=== PATIENT | male | born 1960 | race Caucasian/White ===

== ENCOUNTER 2023-01-03 13:55 | Emergency (ER) | payer OTHER, SELFPAY ==
[2023-01-03 14:01] VITALS: BP 154/95; PULSE 75; RESP 16; TEMP 36.7; O2SAT 94; BMI 28.7
--- NOTE | 2023-01-03 14:10 | CT_ITS ---
WS: [id number] CT HEAD NONCONTRAST HISTORY: confusion TECHNIQUE: Contiguous axial imaging performed through the brain in 2.5 mm imaging. Bone and soft tiss ue windows. Sagittal and coronal reformats reviewed. All CT scans at [facility] use at least one of these dose optimization techniques: automated exposure control; mA and/or kV adjustment per pa tient size (includes targeted exams where dose is matched to clinical indication); or iterative recon struction. DLP: 1063.08 mGy.cm COMPARISON: None available. No acute intracranial hemorrhage, midline shift or mass effect. Mild bifrontal lobe atrophy. No prior infarct. Ventricles: Normal size with no hydrocephalus. No inferior displacement of cerebellar tonsils. Paranasal sinuses: As visualized are clear. Mastoid air cells: Well pneumatized. Calvarium and scalp: Skull is intact with no soft tissue edema or swelling. IMPRESSION: 1. No acute intracranial hemorrhage or edema. 2. Mild bifrontal lobe atrophy.
--- NOTE | 2023-01-03 14:10 | XR_ITS ---
WS: [id number] Portable AP upright chest, 01/03/2023 Clinical Data: confusion Comparison: Portable chest, 04/26/2016 Findings: No nodules, masses or effusions are seen. The heart is normal. The pulmonary vascularity is not increased. No pneumonia or pneumothorax is seen. The aortic arch and descending thoracic aorta s how tortuosity. Impression: Negative chest.
--- NOTE | 2023-01-03 14:11 | ECG_ITS ---
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 Measurements Intervals [place] Rate: 74 P: 9 AK: 132 QRS: -22 QRSD: 98 T: -21 QT: 389 QTc: 432 Interpretive Statements SINUS RHYTHM BORDERLINE LEFT AXIS DEVIATION [QRS AXIS < -20] MODERATE VOLTAGE CRITERIA FOR LVH, CONSIDER NORMAL VARIANT [MEETS CRITERIA IN ONE OF: R(aVL), S(V1), R(V5), R(V5/V6)+S(V1)] MINIMAL ST DEPRESSION [0.025+ mV ST DEPRESSION] Compared to ECG 04/26/2016 10:21:59 No significant changes Electronically Signed On 01-03-2023 17:19:51 MECHANICAL RELIABILITY ENGINEER by Reynaldo Salmeron M.D. [id number]
--- NOTE | 2023-01-03 14:13 | ED_ITS ---
HPI - Anxiety General: Chief Complaint: Anxiety Stated Complaint: Confusion Time Seen by Provider: 01/03/23 13:57 Source: patient and EMS Mode of arrival: EMS Limitations: no limitations History of Present Illness: 62-year-old male who states that he is under a lot of stress at home. States she has a special needs daughter and his [id number] and of had bad health he states that today he is feeling extremely anxious started having some slight confusion. Is very difficult to get a history from the patient I do not appreciate any definite confusion here he is answering most my questions appropriately. He does know where he is when I did ask him the year he states he never knows the year he does not pay attention to your I asked him who the president was and he said that he does not know who the president was for years because he is too busy to pay attention to that. He has had a very mild headache denies any fevers. Associated symptoms: Reports confusion; Deny chest pain, chills, fever(s), headache(s), nausea or vomiting Review of Systems Const: Denies: fever(s) or chills Eyes: Denies: blurry vision or eye discomfort ENMT: Denies: throat pain or dental pain Card: Denies: chest pain Resp: Denies: dyspnea GI: Denies: abdominal pain, nausea, vomiting or diarrhea : Denies: dysuria Musc: Denies: neck pain or back pain Skin/Breast: Denies: rash Neuro: Reports: confusion; Denies: headache(s) or difficulty walking Physical Exam Const: COMMON NORMALS: no acute distress, patient oriented x3 and healthy appearing HENMT: COMMON NORMALS: normocephalic and atraumatic HEAD & SCALP: normocephalic and atraumatic Eye: COMMON NORMALS: Equal, round and reactive pupils present and EOMs intact bilaterally PUPIL: Yes Equal, round and reactive pupils present Neck/C-Spine: COMMON NORMALS: full ROM and supple Chest: COMMONS NORMALS: normal inspection of the chest and normal palpation of entire chest wall Resp: COMMON NORMALS: normal respiratory effort, No retractions, No use of accessory muscles and clear to auscultation bilaterally AUSCULTATION: clear to auscultation bilaterally Cardio: COMMON NORMALS: regular rate, regular rhythm and No murmurs present (Cardio) RATE: regular rate RHYTHM: regular rhythm GI: COMMON NORMALS: Normal to inspection, nondistended, normoactive bowel aldair nds present, Soft to palpation, non-tender and no masses PALPATION: Yes Soft to palpation Extremity: COMMON NORMALS: normal to inspection and full ROM Neuro: COMMON NORMALS: patient oriented x3, moves all extremities and no focal motor deficits Psych: COMMON NORMALS: mental status grossly normal, Normal thought process present and cooperative THOUGHT PROCESS: Normal thought process present Skin: COMMON NORMALS: no rashes or lesions noted and no wounds GENERAL SKIN EXAM: no rashes or lesions noted Course Vital Signs: Vital signs: Vital Signs Temperature 98.1 F 01/03/23 14:01 Pulse Rate 69 01/03/23 15:02 Respiratory Rate 16 01/03/23 14:01 Blood Pressure 150/96 01/03/23 15:02 Pulse Oximetry 94 01/03/23 15:02 Oxygen Delivery Me thod Room Air 01/03/23 15:02 MDM - Anxiety Medical Decision Making patient presents here with some transient confusion likely stress-induced she is much improved here he states he feels improved he has no focal deficits he is ambulatory here he is answering all questions appropriately head CT and blood work are all normal he is stable for discharge he is to follow-up with PCP and return if worsening. Medical Records I reviewed the patient's medical records. Lab Data I reviewed the patient's lab results. 01/03/23 14:18 01/03/23 14:18 Laboratory Results WBC 7.65 10^3/uL (3.29-11.43) 01/03/23 14:18 RBC 5.21 10^6/uL (3.85-5.65) 01/03/23 14:18 Hgb 15.10 g/dL (11.27-16.99) 01/03/23 14:18 Hct 45.4 % (37-53) 01/03/23 14:18 MCV 87.1 fl (82-101) 01/03/23 14:18 MCH 29.0 pg (27-33) 01/03/23 14:18 MCHC 33.3 g/dL (30-55) 01/03/23 14:18 RDW 14.3 % (12.1-15.1) 01/03/23 14:18 Plt Count 260 10^3/cmm (157-399) 01/03/23 14:18 MPV 8.9 fL (7.4-10.4) 01/03/23 14:18 Neut % (Auto) 73.3 % 01/03/23 14:18 Lymph % (Auto) 21.8 % 01/03/23 14:18 Braxton % (Auto) 4.1 % 01/03/23 14:18 Eos % (Auto) 0.0 % 01/03/23 14:18 Baso % (Auto) 0.1 % 01/03/23 14:18 Neut # (Auto) 5.61 10^3/uL (1.8-7.7) 01/03/23 14:18 Lymph # (Auto) 1.7 10^3/uL (0.8-4.8) 01/03/23 14:18 Braxton # (Auto) 0.3 10^3/uL (0.2-0.9) 01/03/23 14:18 Eos # (Auto) 0.0 10^3/uL (0.0-0.8) 01/03/23 14:18 Baso # (Auto) 0.0 10^3/uL (0.0-0.1) 01/03/23 14:18 Nucleated RBC % (auto) 0 % 01/03/23 14:18 Nucleated RBCs # 0.0 /100WBC 01/03/23 14:18 Sodium 140 mmol/L (136-145) 01/03/23 14:18 Potassium 4.5 mmol/L (3.5-5.1) 01/03/23 14:18 Chloride 104 mmol/L (98-107) 01/03/23 14:18 Carbon Dioxide 24 mmol/L (22-29) 01/03/23 14:18 Anion Gap 16.5 (5-19) 01/03/23 14:18 BUN 19 mg/dL (8-23) 01/03/23 14:18 Creatinine 0.8 mg/dL (0.7-1.2) 01/03/23 14:18 GFR Calculation 98.6 mL/min (90-130) 01/03/23 14:18 Glucose 133 mg/dL (65-115) H 01/03/23 14:18 Calculated Osmolality 294 mOsm/kg (285-295) 01/03/23 14:18 Calcium 8.6 mg/dL (8.5-10.5) 01/03/23 14:18 Total Bilirubin 0.4 mg/dL (0.15-1.2) 01/03/23 14:18 AST 23 U/L (0-40) 01/03/23 14:18 ALT 39 U/L (0-41) 01/03/23 14:18 Alkaline Phosphatase 59 U/L (40-130) 01/03/23 14:18 Ammonia 33 umol/L (16-60) 01/03/23 14:18 Total Protein 6.6 g/dL (6.6-8.7) 01/03/23 14:18 Albumin 4.0 g/dL (3.5-5.2) 01/03/23 14:18 Globulin 2.6 g/dL (1.3-4.6) 01/03/23 14:18 All radiology interpretation(s) finalized by discharge EKG Data EKG 1: I personally reviewed and interpreted this EKG as follows: EKG interpretation date: 01/03/23 EKG interpretation time: 14:14 Interpretation: nsr hr [address] or t wave abnormalities qrs 98 qtc 416 Discharge Plan Discharge Condition: Stable Prescriptions: No Action trazodone 50 mg Tablet 50 mg PO BEDTIME meloxicam 15 mg Tablet 15 mg PO DAILY PRN (Reason: Pain) acetaminophen 500 mg Tablet 1,000 mg PO TID PRN (Reason: Pain) fluoxetine 20 mg Tablet 60 mg PO QAM divalproex 500 mg Tablet Extended Release 24 Hr 1,500 mg PO BEDTIME gabapentin 300 mg Capsule 900 mg PO TID hydroxyzine HCl 25 mg Tablet 25 mg PO BID PRN (Reason: Itching) hydrochlorothiazide 25 mg Tablet 12.5 mg PO DAILY vitamin [id number] acid 0.5-1 mg Tablet 1 tab PO DAILY pregabalin 100 mg Capsule 100 mg PO BID Referrals: Monica Guy MD [Primary Care Provider] - Coding Level of Care Code ED [employer] for Chg Fwd NIH stroke score NIHSS Level Of Consciousness - 1a: 0 Level Of Consciousness Questions - 1b: Both Correct Level Of Consciousness Commands - 1c: Both Correct Best Gaze - 2: Normal Visual Fernandez - 3: No Visual Loss Facial Palsy - 4: Normal Motor Arm Right - 5: No Drift Motor Arm Left - 5: No Drift Motor Leg Right - 6: No Drift Motor Leg Left - 6: No Drift Limb Ataxia - 7: Absent Sensory - 8: Normal Best Language - 9: No Aphasia Dysarthia - 10: Normal Extinction And Inattention - 11: 0 Score Total Score: 0
[2023-01-03 14:22] LABS: Basophils % 0.1 %; Hematocrit 45.4 % (37-53); Lymphocytes # 1.7 10^3/uL (0.8-4.8); Lymphocytes % 21.8 %; Mean Corpuscular HGB Conc 33.3 g/dL (30-55); Mean Corpuscular Volume 87.1 fl (82-101); Mean Platelet Volume 8.9 fL (7.4-10.4); Monocytes # 0.3 10^3/uL (0.2-0.9); Monocytes % 4.1 %; Neutrophils # 5.61 10^3/uL (1.8-7.7); Neutrophils % 73.3 %; Nucleated Red Blood Cells % 0 %; Platelet Count 260 10^3/cmm (157-399); Red Blood Count 5.21 10^6/uL (3.85-5.65); Red Cell Distribution Width 14.3 % (12.1-15.1); White Blood Count 7.65 10^3/uL (3.29-11.43)
[2023-01-03 14:45] LABS: Alanine Aminotransferase 39 U/L (0-41); Alkaline Phosphatase 59 U/L (40-130); Anion Gap 16.5 (5-19); Aspartate Amino Transferase 23 U/L (0-40); Blood Urea Nitrogen 19 mg/dL (8-23); Calcium 8.6 mg/dL (8.5-10.5); Carbon Dioxide 24 mmol/L (22-29); Chloride 104 mmol/L (98-107); Creatinine Clr Calc Pharmacy 111.2322; Globulin 2.6 g/dL (1.3-4.6); Glomerular Filtration Rate 98.6 mL/min (90-130); Glucose 133 mg/dL (65-115); Osmolality Calculated 294 mOsm/kg (285-295); Potassium 4.5 mmol/L (3.5-5.1); Sodium 140 mmol/L (136-145); Total Bilirubin 0.4 mg/dL (0.15-1.2); Total Protein 6.6 g/dL (6.6-8.7)
[2023-01-03 14:49] LABS: Ammonia 33 umol/L (16-60)
[2023-01-03 15:02] VITALS: BP 150/96; PULSE 69; O2SAT 94
[2023-01-03 15:58] VITALS: BP 138/91; PULSE 73; O2SAT 95
== END 2023-01-03 15:55 | disposition home or self-care (01) ==
PROVIDERS: Emergency Provider Emergency Medicine; PCP Internal Medicine
DX: F41.9 Anxiety disorder, unspecified (principal); R41.0 Disorientation, unspecified
CPT/HCPCS: 36415; 70450; 71045; 80053; 82140; 85025; 93005; 99285

== ENCOUNTER 2023-12-30 15:12 | Emergency (ER) | payer OTHER, MEDICARE, SELFPAY ==
[2023-12-30 15:17] VITALS: BP 142/90; PULSE 108; RESP 20; TEMP 36.9; O2SAT 94; BMI 28.7
== END 2023-12-30 16:49 | disposition left against medical advice (07) ==
PROVIDERS: Emergency Provider Family Medicine; PCP Internal Medicine
DX: Z53.21 Procedure and treatment not carried out due to patient leaving prior to being seen by health care provider (principal); R10.84 Generalized abdominal pain

== ENCOUNTER 2024-05-12 20:04 | Emergency (ER) | payer OTHER, MEDICARE, SELFPAY ==
[2024-05-12] VITALS (25 sets, daily range): BP systolic 115–149; BP diastolic 73–89; PULSE 86–103; RESP 10–38; TEMP 38.3; O2SAT 89–92; BMI 35.1
--- NOTE | 2024-05-12 20:33 | XRR_ITS ---
PROCEDURE INFORMATION: Exam: XR Chest Exam date and time: 05/12/2024 8:41 PM Age: 63 years old Clinical indication: Shortness of breath TECHNIQUE: Imaging protocol: Radiologic exam of the chest. Views: 1 view. COMPARISON: CR XR chest 1V portable [id number] 01/03/2023 2:19 PM FINDINGS: Limitations: The study is made with less than full inspiration. Lungs: No focal infiltrate is identified. Pleural spaces: Unremarkable. No pleural effusion. No pneumothorax. Heart/Mediastinum: Heart is within normal limits of size. Bones/joints: There are degenerative changes in the thoracic spine. XR/XR chest 1V portable [id number] IMPRESSION: Shallow inspiration. No acute infiltrate.
[2024-05-12 20:59] LABS: Basophils % 0.3 %; Eosinophils % 0.3 %; Hematocrit 44.1 % (37-53); Lymphocytes # 2.4 10^3/uL (0.8-4.8); Lymphocytes % 22.3 %; Mean Corpuscular HGB Conc 32.2 g/dL (30-55); Mean Corpuscular Hemoglobin 28.2 pg (27-33); Mean Corpuscular Volume 87.7 fl (82-101); Mean Platelet Volume 9.2 fL (7.4-10.4); Monocytes # 1.1 10^3/uL (0.2-0.9); Monocytes % 9.9 %; Neutrophils # 7.08 10^3/uL (1.8-7.7); Nucleated Red Blood Cells % 0 %; Platelet Count 190 10^3/cmm (157-399); Red Blood Count 5.03 10^6/uL (3.85-5.65); Red Cell Distribution Width 14.3 % (12.1-15.1); White Blood Count 10.56 10^3/uL (3.29-11.43)
[2024-05-12 21:26] LABS: Alanine Aminotransferase 16 U/L (0-41); Albumin Level 3.8 g/dL (3.5-5.2); Alkaline Phosphatase 69 U/L (40-130); Anion Gap 14.7 (5-19); Aspartate Amino Transferase 16 U/L (0-40); Blood Urea Nitrogen 14 mg/dL (8-23); C Reactive Protein 43.4 mg/L (0.0-4.9); Calcium 8.7 mg/dL (8.5-10.5); Carbon Dioxide 24 mmol/L (22-29); Chloride 101 mmol/L (98-107); Globulin 2.9 g/dL (1.3-4.6); Glomerular Filtration Rate 114.6 mL/min (90-130); Glucose 135 mg/dL (65-115); Osmolality Calculated 285 mOsm/kg (285-295); Potassium 3.7 mmol/L (3.5-5.1); Sodium 136 mmol/L (136-145); Total Bilirubin 0.2 mg/dL (0.15-1.2); Total Protein 6.7 g/dL (6.6-8.7)
[2024-05-12 21:27] LABS: Influenza A NEGATIVE (Negative); Influenza B NEGATIVE (Negative); Respiratory Syncytial Virus Ce NEGATIVE (Negative); SARS-CoV-2 PCR NEGATIVE (Negative)
[2024-05-12 21:27] LABS: Lactic Sepsis W/Reflex 1.5 mmol/L (0.5-2.2)
--- NOTE | 2024-05-12 21:28 | W.ED.SOB ---
HPI - SOB/Dyspnea General: Chief Complaint: Shortness of Breath/Dyspnea Stated Complaint: WEAKNESS Time Seen by Provider: 05/12/24 20:57 History of Present Illness: HPI Narrative: Patient presents with acute altered mental status and fever. Family reports patient has been difficult to arouse today, notably during blood draws and X-rays. Symptoms began this morning with severe headache followed by fever spikes up to 103?F, with noted temperature fluctuations throughout the day. Patient has been complaining of lower back pain recently, with known history of bulging discs. Of note, patient had a similar episode several months ago at [facility] involving unresponsiveness, fever, and temporary inability to move extremities, which resolved spontaneously. Patient was discharged from the ER after improvement. Patient recently received flu vaccine. No new medications reported. Regular care is established with Dr. Guy in [place], [place]. No home oxygen requirement. Family reports patient took Tylenol today for fever management. Patient has been complaining of a mass or nodule near the sternum, though not palpable on current examination. Related Data Home Medications ?Medication ?Instructions ?Recorded ?Confirmed acetaminophen 500 mg tablet 1,000 mg PO TID PRN Pain 01/03/23 01/03/23 divalproex 500 mg tablet,extended 1,500 mg PO BEDTIME 01/03/23 01/03/23 release 24 hr fluoxetine 20 mg tablet 60 mg PO QAM 01/03/23 01/03/23 gabapentin 300 mg capsule 900 mg PO TID 01/03/23 01/03/23 hydrochlorothiazide 25 mg tablet 12.5 mg PO DAILY 01/03/23 01/03/23 hydroxyzine HCl 25 mg tablet 25 mg PO BID PRN Itching 01/03/23 01/03/23 meloxicam 15 mg tablet 15 mg PO DAILY PRN Pain 01/03/23 01/03/23 pregabalin 100 mg capsule 100 mg PO BID 01/03/23 01/03/23 trazodone 50 mg tablet 50 mg PO BEDTIME 01/03/23 01/03/23 vitamin B12 0.5 mg-folic acid 1 mg 1 tab PO DAILY 01/03/23 01/03/23 tablet Previous Rx's ?Medication ?Instructions ?Recorded doxycycline monohydrate 100 mg 100 mg PO BID 7 days #14 caps 05/13/24 capsule Allergies Allergy/AdvReac Type Severity Reaction Status Date / Time No Known Allergies Allergy Verified 05/12/24 20:13 Physical Exam Const: COMMON NORMALS: no acute distress and well nourished; negative for patient oriented x3 and negative for alert HENMT: COMMON NORMALS: normocephalic HEAD & SCALP: normocephalic Eye: COMMON NORMALS: Equal, round and reactive pupils present, EOMs intact bilaterally and conjunctivae normal CONJUNCTIVA: Yes conjunctivae normal PUPIL: Yes Equal, round and reactive pupils present Neck/C-Spine: COMMON NORMALS: full ROM, no lymphadenopathy, supple, no meningeal signs, no JVD and Thyroid normal THYROID: Thyroid normal Chest: COMMONS NORMALS: normal inspection of the chest and normal palpation of entire chest wall Resp: COMMON NORMALS: normal respiratory effort, No retractions, No use of accessory muscles, clear to auscultation bilaterally and percussion normal AUSCULTATION: clear to auscultation bilaterally PERCUSSION: percussion normal Cardio: COMMON NORMALS: no JVD GI: COMMON NORMALS: Normal to inspection, nondistended, normoactive bowel sounds present, Soft to palpation, non-tender, No hepatosplenomegaly present, no masses and no bruits PALPATION: Yes Soft to palpation and Yes No hepatosplenomegaly present : COMMON NORMALS: Yes no CVA tenderness BLADDER/KIDNEY EXAM: Yes no CVA tenderness Back/Pelvis: COMMON NORMALS: no CVA tenderness Extremity: COMMON NORMALS: normal to inspection, full ROM, capillary refill normal, no joint enlargement, no clubbing, cyanosis or edema, no calf tenderness and no pedal edema Neuro: COMMON NORMALS: negative for patient oriented x3 and negative for moves all extremities SENSORIUM/ORIENTATION: No alert and Yes obtunded MENINGEAL SIGNS: Yes no meningeal signs GAIT: Yes Unable to assess gait Skin: COMMON NORMALS: no rashes or lesions noted, turgor normal and no jaundice GENERAL SKIN EXAM: no rashes or lesions noted and turgor normal Course Vital Signs: Vital signs: Vital Signs Temperature 101.0 F H 05/12/24 20:06 Pulse Rate 99 05/13/24 00:00 Respiratory Rate 28 H 05/13/24 00:00 Blood Pressure 115/73 05/13/24 00:00 Pulse Oximetry 90 05/13/24 00:00 Oxygen Delivery Me thod Room Air 05/12/24 20:27 MDM - SOB/Dyspnea Medical Decision Making 1. Altered Mental Status with Fever - Concerning for possible metabolic derangement, psychiatric disease (prior undiagnosed presentation, seems patient can hear and respond but choose not) or systemic infection - Will obtain complete blood count, comprehensive metabolic panel, blood cultures - Obtain head CT - Negative - Monitor neurological status closely 2. Chronic Low Back Pain - Known bulging discs - Will defer management until acute condition stabilizes 3. Reported Sternal Mass - Not appreciated on current exam - Will review previous imaging if available - Consider chest imaging as part of current workup Patient now more awake and alert and feeling somewhat better he has mild headache his temperature was recorded as [address] ?[address] scan of his chest revealed concerns of pneumonia the patient does not meet criteria for sepsis currently is on room air feeling better desiring to go home. Will discharge home after antibiotics. Lab Data 05/12/24 20:53 05/12/24 20:53 Labs/Radiology: Radiology Impressions Chest X-Ray 05/12/24 20:33 IMPRESSION: Shallow inspiration. No acute infiltrate. Chest CTA 05/12/24 21:29 IMPRESSION: 1. There pulmonary vascular markings seen in mid and lower thoraces, peribronchial cuffing, hazy opacities present mid and thoraces well, findings that may represent pulmonary edema. 2. Some strandy opacities and consolidation is seen in the lower tamar thoraces, right left most probably representing atelectasis. However superimposed bilateral basilar infiltrates and pneumonia can not be excluded. 3. There is no evidence for pulmonary emboli. Head CT 05/12/24 21:29 IMPRESSION: No acute intracranial abnormality. Laboratory Results WBC 10.56 10^3/uL (3.29-11.43) 05/12/24 20:53 RBC 5.03 10^6/uL (3.85-5.65) 05/12/24 20:53 Hgb 14.20 g/dL (11.27-16.99) 05/12/24 20:53 Hct 44.1 % (37-53) 05/12/24 20:53 MCV 87.7 fl (82-101) 05/12/24 20:53 MCH 28.2 pg (27-33) 05/12/24 20:53 MCHC 32.2 g/dL (30-55) 05/12/24 20:53 RDW 14.3 % (12.1-15.1) 05/12/24 20:53 Plt Count 190 10^3/cmm (157-399) 05/12/24 20:53 MPV 9.2 fL (7.4-10.4) 05/12/24 20:53 Neut % (Auto) 67.0 % 05/12/24 20:53 Lymph % (Auto) 22.3 % 05/12/24 20:53 Rowan % (Auto) 9.9 % 05/12/24 20:53 Eos % (Auto) 0.3 % 05/12/24 20:53 Baso % (Auto) 0.3 % 05/12/24 20:53 Neut # (Auto) 7.08 10^3/uL (1.8-7.7) 05/12/24 20:53 Lymph # (Auto) 2.4 10^3/uL (0.8-4.8) 05/12/24 20:53 Rowan # (Auto) 1.1 10^3/uL (0.2-0.9) H 05/12/24 20:53 Eos # (Auto) 0.0 10^3/uL (0.0-0.8) 05/12/24 20:53 Baso # (Auto) 0.0 10^3/uL (0.0-0.1) 05/12/24 20:53 Nucleated RBC % (auto) 0 % 05/12/24 20:53 Nucleated RBCs # 0.0 /100WBC 05/12/24 20:53 Specimen Type Venous 05/12/24 21:37 Gildardo Test N/a 05/12/24 21:37 VBG pH 7.43 (7.32-7.42) H 05/12/24 21:37 VBG pCO2 42.0 mmHg (41-51) 05/12/24 21:37 VBG pO2 48.1 mmHg (25-40) H 05/12/24 21:37 VBG HCO3 27.5 mmol/L (24-28) 05/12/24 21:37 VBG Base Excess 2.7 mmol/L (-3.0-3.0) 05/12/24 21:37 VBG Hematocrit 44.5 % (42-52) 05/12/24 21:37 Roto Rooter Operator ID [email or web address] 05/12/24 21:37 Sodium 136 mmol/L (136-145) 05/12/24 20:53 Potassium 3.7 mmol/L (3.5-5.1) 05/12/24 20:53 Chloride 101 mmol/L (98-107) 05/12/24 20:53 Carbon Dioxide 24 mmol/L (22-29) 05/12/24 20:53 Anion Gap 14.7 (5-19) 05/12/24 20:53 BUN 14 mg/dL (8-23) 05/12/24 20:53 Creatinine 0.7 mg/dL (0.7-1.2) 05/12/24 20:53 GFR Calculation 114.6 mL/min (90-130) 05/12/24 20:53 Glucose 135 mg/dL (65-115) H 05/12/24 20:53 Calculated Osmolality 285 mOsm/kg (285-295) 05/12/24 20:53 Lactic Acid 1.5 mmol/L (0.5-2.2) 05/12/24 20:53 Calcium 8.7 mg/dL (8.5-10.5) 05/12/24 20:53 Total Bilirubin 0.2 mg/dL (0.15-1.2) 05/12/24 20:53 AST 16 U/L (0-40) 05/12/24 20:53 ALT 16 U/L (0-41) 05/12/24 20:53 Alkaline Phosphatase 69 U/L (40-130) 05/12/24 20:53 C-Reactive Protein 43.4 mg/L (0.0-4.9) H 05/12/24 20:53 Total Protein 6.7 g/dL (6.6-8.7) 05/12/24 20:53 Albumin 3.8 g/dL (3.5-5.2) 05/12/24 20:53 Globulin 2.9 g/dL (1.3-4.6) 05/12/24 20:53 Procalcitonin 0.06 ng/mL (0-0.5) 05/12/24 20:53 Urine Color Yellow (Yellow) 05/12/24 22:43 Urine Appearance Clear (CLEAR) 05/12/24 22:43 Urine pH 8.5 (5-7) A 05/12/24 22:43 Ur Specific [place] 1.069 (1.005-1.030) H 05/12/24 22:43 Urine Protein Trace (Negative) A 05/12/24 22:43 Urine Glucose (UA) Negative (Normal) 05/12/24 22:43 Urine Ketones Trace (Negative) 05/12/24 22:43 Urine Blood Negative (Negative) 05/12/24 22:43 Urine Nitrate Negative (Negative) 05/12/24 22:43 Urine Bilirubin Negative (Negative) 05/12/24 22:43 Urine Urobilinogen 1.0 mg/dL (Negative) 05/12/24 22:43 Ur Leukocyte Esterase Negative (Negative) 05/12/24 22:43 Urine RBC 3-5 /hpf (0-2) 05/12/24 22:43 Urine WBC 0-5 /hpf (0-5) 05/12/24 22:43 Ur Squamous Epith Cells 0-5 /hpf (0-5) 05/12/24 22:43 Amorphous Sediment Not Reportable 05/12/24 22:43 Urine Bacteria None seen /hpf (NONE) 05/12/24 22:43 Hyaline Casts 0-4 /lpf H 05/12/24 22:43 Influenza A (PCR) Negative (Negative) 05/12/24 20:43 Influenza Type B (PCR) Negative (Negative) 05/12/24 20:43 RSV (PCR) Negative (Negative) 05/12/24 20:43 SARS-CoV-2 (PCR) Negative (Negative) 05/12/24 20:43 All radiology interpretation(s) finalized by discharge Discharge Plan Discharge Patient Disposition: Home Clinical Impression: Community acquired pneumonia Condition: Stable Prescriptions: New doxycycline monohydrate 100 mg capsule 100 mg PO BID 7 Days Qty: 14 0RF No Action trazodone 50 mg Tablet 50 mg PO BEDTIME meloxicam 15 mg Tablet 15 mg PO DAILY PRN (Reason: Pain) acetaminophen 500 mg Tablet 1,000 mg PO TID PRN (Reason: Pain) fluoxetine 20 mg Tablet 60 mg PO QAM divalproex 500 mg Tablet Extended Release 24 Hr 1,500 mg PO BEDTIME gabapentin 300 mg Capsule 900 mg PO TID hydroxyzine HCl 25 mg Tablet 25 mg PO BID PRN (Reason: Itching) hydrochlorothiazide 25 mg Tablet 12.5 mg PO DAILY vitamin [id number] acid 0.5-1 mg Tablet 1 tab PO DAILY pregabalin 100 mg Capsule 100 mg PO BID Discharge Orders: Discharge ED (Routine); Ordered 05/13/24 Ordered By: Hieu Peoples Referrals: Monica Guy MD [Primary Care Provider] - Discharge Diet: Usual diet Discharge Activity: Limit activity as instructed Patient Instructions: Opioid Safety, Pain Management Activity Restrictions/Additional Instructions: 1. Rest, fluids and take Rx as directed. 2. Recheck with PCP in 2-3 days. 3. Return to ED for new or worsening symptoms. Print Language: Gambian Coding Level of Care Code ED Senior Application Security Consultant for Jen Tello
--- NOTE | 2024-05-12 21:29 | CTR_ITS ---
PROCEDURE INFORMATION: Exam: CTA Chest With Contrast Exam date and time: 05/12/2024 9:54 PM Age: 63 years old Clinical indication: Fever and shortness of breath; Additional info: Abnormal cxr / hypoxia TECHNIQUE: Imaging protocol: Computed tomographic angiography of the chest with contrast. Exam focused on the arteries. 3D rendering (Not supervised by radiologist): MIP and/or 3D reconstructed images were created by the technologist. Radiation optimization: All CT scans at this facility use at least one of these dose optimization techniques: automated exposure control; mA and/or kV adjustment per patient size (includes targeted exams where dose is matched to clinical indication); or iterative reconstruction. Contrast material: OMNI 350; Contrast volume: 80 ml; Contrast route: INTRAVENOUS (IV); COMPARISON: CR (CHEST, ) 05/12/2024 8:41 PM RADIATION DOSE METRICS: Total DLP (mGy-cm): 482.08 FINDINGS: Pulmonary arteries: There is some prominence of pulmonary vasculature within the mid and lower tamar thoraces. Aorta: Unremarkable. No aortic aneurysm. No aortic dissection. Lungs: Strandy and hazy opacities are present in the lower tamar thoraces bilaterally. Some consolidation is seen in the right posterior hemithorax. Pleural spaces: Unremarkable. No pneumothorax. No pleural effusion. Heart: Unremarkable. No cardiomegaly. No pericardial effusion. Coronary arteries: There are no coronary artery calcifications. Lymph nodes: Unremarkable. No enlarged lymph nodes. Bones/joints: Unremarkable. No acute fracture. Soft tissues: Unremarkable. Other findings: Mild wall thickening is seen in the mid and lower tamar thoraces. CT/CT angio chest PE protcl [id number] IMPRESSION: 1. There pulmonary vascular markings seen in mid and lower thoraces, peribronchial cuffing, hazy opacities present mid and thoraces well, findings that may represent pulmonary edema. 2. Some strandy opacities and consolidation is seen in the lower tamar thoraces, right left most probably representing atelectasis. However superimposed bilateral basilar infiltrates and pneumonia can not be excluded. 3. There is no evidence for pulmonary emboli.
--- NOTE | 2024-05-12 21:29 | CTR_ITS ---
PROCEDURE INFORMATION: Exam: CT Head Without Contrast Exam date and time: 05/12/2024 9:50 PM Age: 63 years old Clinical indication: Alteration of consciousness; Somnolence (drowsiness); Additional info: Unresponsive TECHNIQUE: Imaging protocol: Computed tomography of the head without contrast. Radiation optimization: All CT scans at this facility use at least one of these dose optimization techniques: automated exposure control; mA and/or kV adjustment per patient size (includes targeted exams where dose is matched to clinical indication); or iterative reconstruction. COMPARISON: CT head wo con* [id number] 01/03/2023 2:56 PM RADIATION DOSE METRICS: Total DLP (mGy-cm): 1261.38 FINDINGS: Brain: Normal. No hemorrhage. Unremarkable white matter. No mass effect. Cerebral ventricles: No ventriculomegaly. Paranasal sinuses: Visualized sinuses are unremarkable. No fluid levels. Mastoid air cells: Visualized mastoid air cells are well aerated. Bones: Unremarkable. No acute fracture. Soft tissues: Unremarkable. CT/CT head wo con* [id number] IMPRESSION: No acute intracranial abnormality.
[2024-05-12 21:33] LABS: Procalcitonin 0.06 ng/mL (0-0.5)
[2024-05-12 21:57] LABS: Base Excess VBG 2.7 mmol/L (-3.0-3.0); Blood Gas Sample Type Venous; HCO3 VBG 27.5 mmol/L (24-28); PO2 VBG 48.1 mmHg (25-40); Venous Blood Gas Hematocrit 44.5 % (42-52); pH VBG 7.43 (7.32-7.42)
[2024-05-12] MEDS: iohexol 350 mg/mL 500 mL Btl (per mL) IV (21:57)
[2024-05-12 22:50] LABS: Bilirubin Urine Negative (Negative); Blood Urine Negative (Negative); Glucose Urine UA Negative (Normal); Ketones Urine Trace (Negative); Leukocyte Esterase Urine Negative (Negative); Nitrate Urine Negative (Negative); Protein Urine Trace (Negative); Urine Appearance Clear (CLEAR); Urine Color Yellow (Yellow); pH Urine 8.5 (5-7)
[2024-05-12 22:55] LABS: Bacteria Urine None Seen /hpf; Hyaline Casts Urine 0-4 /lpf; Squamous Epithelial Cell Urine 0-5 /hpf (0-5); WBC Urine 0-5 /hpf (0-5)
[2024-05-12 23:06] LABS: Specific Gravity, Urine 1.069 (1.005-1.030)
[2024-05-13] VITALS (13 sets, daily range): BP systolic 115–145; BP diastolic 73–106; PULSE 70–108; RESP 21–31; O2SAT 88–93
[2024-05-13] MEDS: cefTRIAXone 1,000 mg SDV 1000 MG IVP (00:35)
[2024-05-13] MEDS: ketorolac 30 mg/mL INJ 15 MG IVP (00:35)
[2024-05-14 08:18] LABS: Blood Gas Sample Site Not specified
== END 2024-05-13 01:11 | disposition home or self-care (01) ==
PROVIDERS: Emergency Medicine; Emergency Provider Family Medicine; PCP Internal Medicine
DX: J18.9 Pneumonia, unspecified organism (principal); Z11.52 Encounter for screening for COVID-19
CPT/HCPCS: 70450; 71045; 71275; 80053; 81001; 82803; 83605; 84145; 85025; 86140; 87040; 87637; 96374; 96375; 99285; J0696; J1885

== ENCOUNTER 2024-06-06 16:33 | Outpatient (CLI) | payer OTHER, SELFPAY ==
--- NOTE | 2024-06-06 16:48 | XR_ITS ---
WS: [id number] Exam: XR lumbar spine 2-3V* [id number] Date/Time of Exam: 06/06/2024 4:49 PM Reason For Exam: Chronic low back pain with bilateral sciatica No fracture noted. Facet arthrosis at L4-5 and L5-S1. Mild spondylosis. Mild degenerative disc narrowing at L1-2 and L2-3. XR/XR lumbar spine 2-3V* [id number] IMPRESSION: 1. Degenerative changes as detailed above. No fracture or malalignment.
== END 2024-06-06 16:34 | disposition home or self-care (01) ==
PROVIDERS: PCP Internal Medicine; Visit Provider Family Medicine
DX: M54.41 Lumbago with sciatica, right side (principal); M54.42 Lumbago with sciatica, left side; G89.29 Other chronic pain; M47.896 Other spondylosis, lumbar region; M47.897 Other spondylosis, lumbosacral region; M51.369 Other intervertebral disc degeneration, lumbar region without mention of lumbar back pain or lower extremity pain
CPT/HCPCS: 72100

== ENCOUNTER 2024-06-23 11:54 | Emergency (ER) | payer OTHER, MEDICARE, SELFPAY ==
[2024-06-23] VITALS (59 sets, daily range): BP systolic 94–135; BP diastolic 53–91; PULSE 50–79; RESP 10–26; TEMP 36.6; O2SAT 90–96
--- NOTE | 2024-06-23 12:02 | CTR_ITS ---
PROCEDURE INFORMATION: Exam: CT Head Without Contrast Exam date and time: 06/23/2024 12:54 PM Age: 63 years old Clinical indication: Pain; Alteration of consciousness; Stupor; Headache not specified; Additional info: Headache, near syncope TECHNIQUE: Imaging protocol: Computed tomography of the head without contrast. Radiation optimization: All CT scans at this facility use at least one of these dose optimization techniques: automated exposure control; mA and/or kV adjustment per patient size (includes targeted exams where dose is matched to clinical indication); or iterative reconstruction. COMPARISON: CT head wo con* [id number] 05/12/2024 9:50 PM RADIATION DOSE METRICS: Total DLP (mGy-cm): 1110.88 FINDINGS: Brain: Normal. No hemorrhage. Unremarkable white matter. No mass effect. Cerebral ventricles: No ventriculomegaly. Paranasal sinuses: Visualized sinuses are unremarkable. No fluid levels. Mastoid air cells: Visualized mastoid air cells are well aerated. Bones: Unremarkable. No acute fracture. Soft tissues: Unremarkable. CT/CT head wo con* [id number] IMPRESSION: No large territorial infarct or intracranial bleed.
--- NOTE | 2024-06-23 12:02 | ECG_ITS ---
[facility] Test Date: 2024-06-23 Pat Name: Jason Santamaria Department: Room: Gender: Male Patient Ambassador: : 1960 Requested By: Kirk Alexander Order Number: [id number] Anuja MD: EVA MOSER Measurements Intervals [place] Rate: 60 P: 58 ID: [id number] QRS: -15 QRSD: 101 T: 1 QT: 427 QTc: 429 Interpretive Statements SINUS RHYTHM Compared to ECG 01/03/2023 14:14:57 ST (T wave) deviation no longer present Electronically Signed On 06-24-2024 20:59:13 CDT by EVA MOSER [email or web address]
--- NOTE | 2024-06-23 12:09 | W.ED.GENADLT ---
HPI - General Adult General: Chief complaint: Headache Stated complaint: headache Time Seen by Provider: 06/23/24 11:56 History of Present Illness: Patient is a 63-year-old male brought by ambulance from [facility] after his called 911 because she was concerned about his mental status. EMS relates that said he was going in and out of consciousness sitting at [facility]. He also states that he has had a 9 of 10, throbbing headache which she locates to just behind his forehead for the last several days. He denies nausea, vomiting, fever, visual disturbance, neck pain, cough, chest pain, shortness of breath, abdominal pain. He denies any recent medication changes. He is slow to answer and somnolent. He speaks in a soft voice and prefers to keep his eyes closed. Related Data Home Medications ?Medication ?Instructions ?Recorded ?Confirmed acetaminophen 500 mg tablet 1,000 mg PO TID PRN Pain 01/03/23 01/03/23 divalproex 500 mg tablet,extended 1,500 mg PO BEDTIME 01/03/23 01/03/23 release 24 hr fluoxetine 20 mg tablet 60 mg PO QAM 01/03/23 01/03/23 gabapentin 300 mg capsule 900 mg PO TID 01/03/23 01/03/23 hydrochlorothiazide 25 mg tablet 12.5 mg PO DAILY 01/03/23 01/03/23 hydroxyzine HCl 25 mg tablet 25 mg PO BID PRN Itching 01/03/23 01/03/23 meloxicam 15 mg tablet 15 mg PO DAILY PRN Pain 01/03/23 01/03/23 pregabalin 100 mg capsule 100 mg PO BID 01/03/23 01/03/23 trazodone 50 mg tablet 50 mg PO BEDTIME 01/03/23 01/03/23 vitamin B12 0.5 mg-folic acid 1 mg 1 tab PO DAILY 01/03/23 01/03/23 tablet Allergies Allergy/AdvReac Type Severity Reaction Status Date / Time No Known Allergies Allergy Verified 06/23/24 12:08 Physical Exam Const: COMMON NORMALS: no acute distress, patient oriented x3 and alert HENMT: COMMON NORMALS: normocephalic and atraumatic HEAD & SCALP: normocephalic and atraumatic Eye: COMMON NORMALS: Equal, round and reactive pupils present, EOMs intact bilaterally and no scleral icterus PUPIL: Yes Equal, round and reactive pupils present Resp: COMMON NORMALS: normal respiratory effort and No retractions Cardio: COMMON NORMALS: regular rate, regular rhythm and No murmurs present (Cardio) RATE: regular rate RHYTHM: regular rhythm GI: COMMON NORMALS: Normal to inspection, nondistended, normoactive bowel sounds present, Soft to palpation and non-tender PALPATION: Yes Soft to palpation Neuro: COMMON NORMALS: patient oriented x3 SENSORIUM/ORIENTATION: Yes alert Psych: OTHER: Seemingly purposefully slow to answer questions. He moves minimally, answers slowly and only with 1 or 2 word answers. As I try to examine his eyes he forcefully closes them. Skin: COMMON NORMALS: no rashes or lesions noted GENERAL SKIN EXAM: no rashes or lesions noted Course Vital Signs: Vital signs: Vital Signs Temperature 97.8 F 06/23/24 11:55 Pulse Rate 55 L 06/23/24 17:26 Respiratory Rate 18 06/23/24 17:20 Blood Pressure 101/65 06/23/24 17:26 Pulse Oximetry 93 06/23/24 17:26 Oxygen Delivery Me thod Room Air 06/23/24 14:25 MDM - General Adult Medical Decision Making Patient remained hemodynamically stable throughout ED course. Urine drug screen is positive for both opiates and benzodiazepines. Patient and state that he is not prescribed benzodiazepines and neither can explain why they would be benzodiazepine in his system. Symptoms are consistent with benzodiazepine overdose. He was observed for several hours during which time he remained hemodynamically stable and eventually became much more alert and awake and was able to walk around without difficulty or experiencing near syncope. He will be discharged home in stable condition with follow-up primary care as needed. Lab Data 06/23/24 12:13 06/23/24 12:[address] 06/23/24 12:02 IMPRESSION: No large territorial infarct or intracranial bleed. Laboratory Results WBC 6.40 10^3/uL (3.29-11.43) 06/23/24 12:13 RBC 5.05 10^6/uL (3.85-5.65) 06/23/24 12:13 Hgb 14.10 g/dL (11.27-16.99) 06/23/24 12:13 Hct 44.6 % (37-53) 06/23/24 12:13 MCV 88.3 fl (82-101) 06/23/24 12:13 MCH 27.9 pg (27-33) 06/23/24 12:13 MCHC 31.6 g/dL (30-55) 06/23/24 12:13 RDW 13.8 % (12.1-15.1) 06/23/24 12:13 Plt Count 212 10^3/cmm (157-399) 06/23/24 12:13 MPV 9.4 fL (7.4-10.4) 06/23/24 12:13 Neut % (Auto) 42.5 % 06/23/24 12:13 Lymph % (Auto) 41.9 % 06/23/24 12:13 [place] % (Auto) 12.5 % 06/23/24 12:13 Eos % (Auto) 2.3 % 06/23/24 12:13 Baso % (Auto) 0.6 % 06/23/24 12:13 Neut # (Auto) 2.72 10^3/uL (1.8-7.7) 06/23/24 12:13 Lymph # (Auto) 2.7 10^3/uL (0.8-4.8) 06/23/24 12:13 [place] # (Auto) 0.8 10^3/uL (0.2-0.9) 06/23/24 12:13 Eos # (Auto) 0.2 10^3/uL (0.0-0.8) 06/23/24 12:13 Baso # (Auto) 0.0 10^3/uL (0.0-0.1) 06/23/24 12:13 Nucleated RBC % (auto) 0 % 06/23/24 12:13 Nucleated RBCs # 0.0 /100WBC 06/23/24 12:13 Sodium 139 mmol/L (136-145) 06/23/24 12:13 Potassium 4.1 mmol/L (3.5-5.1) 06/23/24 12:13 Chloride 105 mmol/L (98-107) 06/23/24 12:13 Carbon Dioxide 23 mmol/L (22-29) 06/23/24 12:13 Anion Gap 15.1 (5-19) 06/23/24 12:13 BUN 8 mg/dL (8-23) 06/23/24 12:13 Creatinine 0.7 mg/dL (0.7-1.2) 06/23/24 12:13 GFR Calculation 114.6 mL/min (90-130) 06/23/24 12:13 Glucose 97 mg/dL (65-115) 06/23/24 12:13 Calculated Osmolality 286 mOsm/kg (285-295) 06/23/24 12:13 Calcium 9.1 mg/dL (8.5-10.5) 06/23/24 12:13 Total Bilirubin 0.3 mg/dL (0.15-1.2) 06/23/24 12:13 AST 20 U/L (0-40) 06/23/24 12:13 ALT 20 U/L (0-41) 06/23/24 12:13 Alkaline Phosphatase 66 U/L (40-130) 06/23/24 12:13 Troponin T Baseline 7 ng/L (0-15) 06/23/24 12:13 Troponin T 120 Minute 6.76 ng/L (0-15) 06/23/24 14:13 Delta Troponin T -0.24 ABS# (0-10) L 06/23/24 14:13 Total Protein 6.5 g/dL (6.6-8.7) L 06/23/24 12:13 Albumin 4.2 g/dL (3.5-5.2) 06/23/24 12:13 Globulin 2.3 g/dL (1.3-4.6) 06/23/24 12:13 Urine Color Yellow (Yellow) 06/23/24 12:58 Urine Appearance Clear (CLEAR) 06/23/24 12:58 Urine pH 6.0 (5-7) 06/23/24 12:58 Ur Specific [place] 1.025 (1.005-1.030) 06/23/24 12:58 Urine Protein Negative (Negative) 06/23/24 12:58 Urine Glucose (UA) Negative (Normal) 06/23/24 12:58 Urine Ketones Trace (Negative) 06/23/24 12:58 Urine Blood Negative (Negative) 06/23/24 12:58 Urine Nitrate Negative (Negative) 06/23/24 12:58 Urine Bilirubin Negative (Negative) 06/23/24 12:58 Urine Urobilinogen 1.0 mg/dL (Negative) 06/23/24 12:58 Ur Leukocyte Esterase Negative (Negative) 06/23/24 12:58 Urine RBC 0-2 /hpf (0-2) 06/23/24 12:58 Urine WBC 0-5 /hpf (0-5) 06/23/24 12:58 Ur Squamous Epith Cells 0-5 /hpf (0-5) 06/23/24 12:58 Amorphous Sediment Not Reportable 06/23/24 12:58 Urine Bacteria None seen /hpf (NONE) 06/23/24 12:58 Hyaline Casts 1.65 /lpf 06/23/24 12:58 Urine Opiates Screen Positive ng/mL (Negative) H 06/23/24 12:58 Ur Barbiturates Screen Negative ng/mL (Negative) 06/23/24 12:58 Ur Phencyclidine Scrn Negative ng/mL (Negative) 06/23/24 12:58 Ur Amphetamines Screen Negative ng/mL (Negative) 06/23/24 12:58 U Benzodiazepines Scrn Positive ng/mL (Negative) H 06/23/24 12:58 Urine Cocaine Screen Negative ng/mL (Negative) 06/23/24 12:58 U Marijuana (THC) Screen Negative ng/mL (Negative) 06/23/24 12:58 Ethyl Alcohol < 10 mg/dL (0-10) 06/23/24 12:13 All radiology interpretation(s) finalized by discharge EKG Data EKG 1: Interpretation: Time?1212?normal sinus rhythm, rate of 60, no ST segment elevation or depression, no T wave inversions, intervals within normal limits. QTc = 428 Computer generated interpretation: Head CT 06/23/24 12:02 IMPRESSION: No large territorial infarct or intracranial bleed. Discharge Plan Discharge Patient Disposition: Home Clinical Impression: Syncope Condition: Stable Prescriptions: No Action trazodone 50 mg Tablet 50 mg PO BEDTIME meloxicam 15 mg Tablet 15 mg PO DAILY PRN (Reason: Pain) acetaminophen 500 mg Tablet 1,000 mg PO TID PRN (Reason: Pain) fluoxetine 20 mg Tablet 60 mg PO QAM divalproex 500 mg Tablet Extended Release 24 Hr 1,500 mg PO BEDTIME gabapentin 300 mg Capsule 900 mg PO TID hydroxyzine HCl 25 mg Tablet 25 mg PO BID PRN (Reason: Itching) hydrochlorothiazide 25 mg Tablet 12.5 mg PO DAILY vitamin T14-hfvdr acid 0.5-1 mg Tablet 1 tab PO DAILY pregabalin 100 mg Capsule 100 mg PO BID Discharge Orders: Discharge ED (Routine); Ordered 06/23/24 Ordered By: Kirk Olsen Referrals: Monica Guy MD [Primary Care Provider] - Discharge Diet: Usual diet Discharge Activity: Resume usual activity Patient Instructions: Syncope, Opioid Safety Print Language: Turkish Coding Level of Care Code 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
[2024-06-23 12:19] LABS: Basophils % 0.6 %; Eosinophils # 0.2 10^3/uL (0.0-0.8); Eosinophils % 2.3 %; Hematocrit 44.6 % (37-53); Lymphocytes # 2.7 10^3/uL (0.8-4.8); Lymphocytes % 41.9 %; Mean Corpuscular HGB Conc 31.6 g/dL (30-55); Mean Corpuscular Hemoglobin 27.9 pg (27-33); Mean Corpuscular Volume 88.3 fl (82-101); Mean Platelet Volume 9.4 fL (7.4-10.4); Monocytes # 0.8 10^3/uL (0.2-0.9); Monocytes % 12.5 %; Neutrophils # 2.72 10^3/uL (1.8-7.7); Neutrophils % 42.5 %; Nucleated Red Blood Cells % 0 %; Platelet Count 212 10^3/cmm (157-399); Red Blood Count 5.05 10^6/uL (3.85-5.65); Red Cell Distribution Width 13.8 % (12.1-15.1)
[2024-06-23] MEDS: diphenhydrAMINE 50 mg/mL SDV 1mL 12.5 MG IVP (12:28)
[2024-06-23] MEDS: sodium chloride 0.9% 1,000 ML 999 ML IV (12:30)
[2024-06-23] MEDS: prochlorperazine 10 mg/2 mL Inj 5 MG IVP (12:31)
[2024-06-23 12:35] LABS: Alanine Aminotransferase 20 U/L (0-41); Albumin Level 4.2 g/dL (3.5-5.2); Alkaline Phosphatase 66 U/L (40-130); Aspartate Amino Transferase 20 U/L (0-40); Blood Urea Nitrogen 8 mg/dL (8-23); Calcium 9.1 mg/dL (8.5-10.5); Carbon Dioxide 23 mmol/L (22-29); Chloride 105 mmol/L (98-107); Globulin 2.3 g/dL (1.3-4.6); Glomerular Filtration Rate 114.6 mL/min (90-130); Glucose 97 mg/dL (65-115); Osmolality Calculated 286 mOsm/kg (285-295); Sodium 139 mmol/L (136-145); Total Bilirubin 0.3 mg/dL (0.15-1.2); Total Protein 6.5 g/dL (6.6-8.7)
[2024-06-23 12:38] LABS: Troponin(5th) Baseline 7 ng/L (0-15)
[2024-06-23 12:56] LABS: Alcohol Level < 10 mg/dL (0-10)
[2024-06-23 12:57] LABS: Anion Gap 15.1 (5-19); Potassium 4.1 mmol/L (3.5-5.1)
[2024-06-23 13:09] LABS: Bilirubin Urine Negative (Negative); Blood Urine Negative (Negative); Glucose Urine UA Negative (Normal); Ketones Urine Trace (Negative); Leukocyte Esterase Urine Negative (Negative); Nitrate Urine Negative (Negative); Protein Urine Negative (Negative); Specific Gravity, Urine 1.025 (1.005-1.030); Urine Appearance Clear (CLEAR); Urine Color Yellow (Yellow)
[2024-06-23 13:14] LABS: Add Urine Microscopic? YES; Bacteria Urine None Seen /hpf; Hyaline Casts Urine 1.65 /lpf; RBC Urine 0-2 /hpf (0-2); Squamous Epithelial Cell Urine 0-5 /hpf (0-5); WBC Urine 0-5 /hpf (0-5)
[2024-06-23 13:16] LABS: Amphetamines Screen Urine Negative (Negative); Barbiturates Screen Urine Negative (Negative); Benzodiazepines Screen Urine Positive (Negative); Cocaine Screen Urine Negative (Negative); Opiate Screen Urine Positive (Negative); PCP Screen Urine Negative (Negative); THC Screen Urine Negative (Negative)
[2024-06-23] MEDS: acetaminophen 1,000 MG/100 ML PIGGYBACK 400 MG IV (14:13)
[2024-06-23 16:13] LABS: Troponin 5 2HR 6.76 ng/L (0-15)
[2024-06-23 16:14] LABS: Troponin 5 2HR Delta -0.24 ABS# (0-10)
== END 2024-06-23 17:27 | disposition home or self-care (01) ==
PROVIDERS: Emergency Provider Student in an Organized Health Care Education/Training Program; PCP Internal Medicine
DX: R55 Syncope and collapse (principal)
CPT/HCPCS: 70450; 80053; 80306; 80307; 81001; 84484; 85025; 93005; 96361; 96365; 96375; 99285; J0131; J0780; J1200; J7030

== ENCOUNTER → 2024-06-24 14:36 | Outpatient (BNVA) | payer OTHER, SELFPAY | PROVIDERS: PCP Internal Medicine; Visit Provider Anesthesiology Pain Medicine | DX: M79.18 Myalgia, other site (principal); M54.9 Dorsalgia, unspecified; M47.816 Spondylosis without myelopathy or radiculopathy, lumbar region | CPT/HCPCS: 20553; 99204; J1010; J3490 ==

== ENCOUNTER → 2024-07-01 08:32 | Outpatient (BNVA) | payer OTHER, SELFPAY | PROVIDERS: PCP Internal Medicine; Visit Provider Anesthesiology Pain Medicine | DX: M54.9 Dorsalgia, unspecified (principal); M47.816 Spondylosis without myelopathy or radiculopathy, lumbar region | CPT/HCPCS: 99214 ==

== ENCOUNTER → 2024-07-19 09:37 | Outpatient (BNVA) | payer OTHER, SELFPAY | PROVIDERS: PCP Internal Medicine; Visit Provider Nurse Practitioner Family | DX: M54.50 Low back pain, unspecified (principal); G89.29 Other chronic pain; M47.816 Spondylosis without myelopathy or radiculopathy, lumbar region | CPT/HCPCS: 99214 ==

== ENCOUNTER 2024-07-21 08:09 | Emergency (ER) | payer OTHER, MEDICARE, SELFPAY ==
[2024-07-21 08:10] VITALS: BP 134/79; PULSE 85; RESP 17; TEMP 37; O2SAT 92
--- NOTE | 2024-07-21 08:11 | CTR_ITS ---
PROCEDURE INFORMATION: Exam: CT Lumbar Spine Without Contrast Exam date and time: 07/21/2024 8:40 AM Age: 64 years old Clinical indication: Injury or trauma; Fall; Blunt trauma (contusions or hematomas) TECHNIQUE: Imaging protocol: Computed tomography of the lumbar spine without contrast. Radiation optimization: All CT scans at this facility use at least one of these dose optimization techniques: automated exposure control; mA and/or kV adjustment per patient size (includes targeted exams where dose is matched to clinical indication); or iterative reconstruction. COMPARISON: MR lumbar spine wo con* [id number] 06/27/2024 3:15 PM RADIATION DOSE METRICS: Total DLP (mGy-cm): 907.12 FINDINGS: Bones/joints: Stable L3 compression deformity with superior endplate depression. Stable Schmorl's node along the superior endplate of the T12 vertebral body The lumbar vertebral bodies are normally aligned. L1-L2: No significant disc bulge or herniation. No severe spinal canal stenosis. No significant neuroforaminal narrowing. L2-L3: Broad concentric disc bulge and bilateral facet arthropathy contributing to moderate central canal stenosis. Mild bilateral neuroforaminal narrowing. L3-L4: Broad concentric disc bulge and bilateral facet arthropathy contributing to moderate central canal stenosis. Mild bilateral neuroforaminal narrowing. L4-L5: Broad concentric disc bulge and bilateral facet arthropathy contributing to moderate central canal stenosis. Mild bilateral neuroforaminal narrowing. L5-S1: Broad concentric disc bulge and bilateral facet arthropathy contributing to mild central canal stenosis. Mild bilateral neuroforaminal narrowing. Soft tissues: Calcified plaque is seen involving the abdominal aorta. Sigmoid diverticulosis. CT/CT lumbar spine wo con* [id number] IMPRESSION: No acute bony abnormality. Degenerative changes of the lumbar spine. If symptoms persist, consider further evaluation with MRI, if there are no contraindications to obtaining a MRI scan.
--- NOTE | 2024-07-21 08:12 | W.ED.BACK ---
HPI - Back Pain/Injury General: Chief Complaint: Back Pain/Injury Stated Complaint: low back pain Time Seen by Provider: 07/21/24 08:09 Source: patient and EMS Mode of arrival: EMS Limitations: no limitations History of Present Illness: 64-year-old male has a history of chronic back pain does go to pain management states he rolled out of bed overnight and having worsening pain since then he states he got up and walk the dog this morning and went back to bed and states his pain is worsened have a hard time walking due to pain rates pain 9 out of 10 denies any head or neck injuries Associated symptoms: Deny abdominal pain, chills, dysuria, fever(s), nausea or vomiting Related Data Home Medications ?Medication ?Instructions ?Recorded ?Confirmed acetaminophen 500 mg tablet 1,000 mg PO TID PRN Pain 01/03/23 07/21/24 divalproex 500 mg tablet,extended 1,500 mg PO BEDTIME 01/03/23 07/21/24 release 24 hr fluoxetine 20 mg tablet 60 mg PO QAM 01/03/23 07/21/24 gabapentin 300 mg capsule See Rx Instructions .Route .COMPLEX 01/03/23 07/21/24 hydrochlorothiazide 25 mg tablet 12.5 mg PO DAILY 01/03/23 07/21/24 trazodone 50 mg tablet 50 mg PO BEDTIME 01/03/23 07/21/24 vitamin B12 0.5 mg-folic acid 1 mg 1 tab PO DAILY 01/03/23 07/21/24 tablet adalimumab 40 mg/0.8 mL 40 mg SUBCUT Q14D 07/21/24 07/21/24 subcutaneous syringe kit (Humira) buspirone 5 mg tablet 5 mg PO TID 07/21/24 07/21/24 omeprazole 40 mg capsule,delayed 40 mg PO DAILY 07/21/24 07/21/24 release Previous Rx's ?Medication ?Instructions ?Recorded STRANGE TLSO brace #1 ea 07/19/24 hydrocodone 7.5 mg-acetaminophen 1 tab PO Q4H PRN pain 5 days #20 07/19/24 325 mg tablet tabs tizanidine 2 mg tablet 2 mg PO BID PRN muscle spasticity 07/19/24 #30 tabs Allergies Allergy/AdvReac Type Severity Reaction Status Date / Time No Known Allergies Allergy Verified 07/19/24 10:17 Review of Systems Const: Denies: fever(s), chills, body aches or change in appetite ENMT: Denies: throat pain or dental pain Card: Denies: chest pain Resp: Denies: dyspnea GI: Denies: abdominal pain, nausea, vomiting or diarrhea : Denies: dysuria Musc: Reports: back pain; Denies: neck pain Skin/Breast: Denies: rash Neuro: Denies: headache(s) PFSH ED PFSH: Medical History Hemangioma of vertebral body Lumbar disc disease with radiculopathy Schmorl nodes of lumbar region Compression fracture of vertebral column Social History Smoking and tobacco/nicotine status: former use of tobacco/nicotine Physical Exam Const: COMMON NORMALS: no acute distress, patient oriented x3 and healthy appearing HENMT: COMMON NORMALS: normocephalic and atraumatic HEAD & SCALP: normocephalic and atraumatic Eye: COMMON NORMALS: conjunctivae normal CONJUNCTIVA: Yes conjunctivae normal Neck/C-Spine: COMMON NORMALS: full ROM and supple CERVICAL SPINE: No Cervical spine tenderness Chest: COMMONS NORMALS: normal inspection of the chest Resp: COMMON NORMALS: normal respiratory effort Cardio: COMMON NORMALS: regular rate RATE: regular rate Back/Pelvis: OTHER: Tenderness along low back no saddle anesthesia Extremity: COMMON NORMALS: normal to inspection and full ROM Neuro: COMMON NORMALS: patient oriented x3, moves all extremities and no focal motor deficits Psych: COMMON NORMALS: mental status grossly normal, Normal thought process present and cooperative THOUGHT PROCESS: Normal thought process present Skin: COMMON NORMALS: no rashes or lesions noted and no wounds GENERAL SKIN EXAM: no rashes or lesions noted Course Vital Signs: Vital signs: Vital Signs Temperature 98.6 F 07/21/24 08:10 Pulse Rate 85 07/21/24 08:10 Respiratory Rate 16 07/21/24 09:51 Blood Pressure 134/79 07/21/24 08:10 Pulse Oximetry 91 07/21/24 09:51 Oxygen Delivery Me thod Room Air 07/21/24 08:10 MDM - Back Pain/Injury Medical Decision Making Patient presents here with back pain is chronic in nature MRI showed no acute findings his pain is improved he is able to ambulate here he stable for discharge follow-up with PCP returning if worsening Medical Records I reviewed the patient's medical records. Labs I reviewed the patient's lab results. 07/21/24 10:14 07/21/24 10:14 Radiology Impressions Lumbar Spine CT 07/21/24 08:11 IMPRESSION: No acute bony abnormality. Degenerative changes of the lumbar spine. If symptoms persist, consider further evaluation with MRI, if there are no contraindications to obtaining a MRI scan. Lumbar Spine MRI 07/21/24 10:02 IMPRESSION: Multilevel degenerative changes of the lumbar spine as outlined above. Laboratory Results WBC 9.45 10^3/uL (3.29-11.43) 07/21/24 10:14 RBC 5.22 10^6/uL (3.85-5.65) 07/21/24 10:14 Hgb 14.50 g/dL (11.27-16.99) 07/21/24 10:14 Hct 44.7 % (37-53) 07/21/24 10:14 MCV 85.6 fl (82-101) 07/21/24 10:14 MCH 27.8 pg (27-33) 07/21/24 10:14 MCHC 32.4 g/dL (30-55) 07/21/24 10:14 RDW 13.9 % (12.1-15.1) 07/21/24 10:14 Plt Count 254 10^3/cmm (157-399) 07/21/24 10:14 MPV 8.9 fL (7.4-10.4) 07/21/24 10:14 Neut % (Auto) 61.2 % 07/21/24 10:14 Lymph % (Auto) 26.0 % 07/21/24 10:14 [place] % (Auto) 11.0 % 07/21/24 10:14 Eos % (Auto) 1.0 % 07/21/24 10:14 Baso % (Auto) 0.7 % 07/21/24 10:14 Neut # (Auto) 5.78 10^3/uL (1.8-7.7) 07/21/24 10:14 Lymph # (Auto) 2.5 10^3/uL (0.8-4.8) 07/21/24 10:14 [place] # (Auto) 1.0 10^3/uL (0.2-0.9) H 07/21/24 10:14 Eos # (Auto) 0.1 10^3/uL (0.0-0.8) 07/21/24 10:14 Baso # (Auto) 0.1 10^3/uL (0.0-0.1) 07/21/24 10:14 Nucleated RBC % (auto) 0 % 07/21/24 10:14 Nucleated RBCs # 0.0 /100WBC 07/21/24 10:14 Sodium 138 mmol/L (136-145) 07/21/24 10:14 Potassium 4.2 mmol/L (3.5-5.1) 07/21/24 10:14 Chloride 101 mmol/L (98-107) 07/21/24 10:14 Carbon Dioxide 26 mmol/L (22-29) 07/21/24 10:14 Anion Gap 15.2 (5-19) 07/21/24 10:14 BUN 9 mg/dL (8-23) 07/21/24 10:14 Creatinine 0.7 mg/dL (0.7-1.2) 07/21/24 10:14 GFR Calculation 114.3 mL/min (90-130) 07/21/24 10:14 Glucose 105 mg/dL (65-115) 07/21/24 10:14 Calculated Osmolality 285 mOsm/kg (285-295) 07/21/24 10:14 Calcium 9.2 mg/dL (8.5-10.5) 07/21/24 10:14 Total Bilirubin 0.5 mg/dL (0.15-1.2) 07/21/24 10:14 AST 20 U/L (0-40) 07/21/24 10:14 ALT 22 U/L (0-41) 07/21/24 10:14 Alkaline Phosphatase 68 U/L (40-130) 07/21/24 10:14 Total Protein 7.2 g/dL (6.6-8.7) 07/21/24 10:14 Albumin 4.0 g/dL (3.5-5.2) 07/21/24 10:14 Globulin 3.2 g/dL (1.3-4.6) 07/21/24 10:14 All radiology interpretation(s) finalized by discharge Discharge Plan Discharge Patient Disposition: Home Clinical Impression: Lumbar disc disease with radiculopathy Condition: Stable Prescriptions: No Action (DME) STRANGE TLSO brace See Rx Instructions .Route .MEDSUPPLY Qty: 1 0RF Rx Instructions: As directed hydrocodone-acetaminophen 7.5-325 mg tablet 1 tab PO Q4H PRN (Reason: pain) 5 Days Qty: 20 0RF tizanidine 2 mg tablet 2 mg PO BID PRN (Reason: muscle spasticity) Qty: 30 1RF Rx Instructions: may take 2 to 3 times daily. trazodone 50 mg Tablet 50 mg PO BEDTIME acetaminophen 500 mg Tablet 1,000 mg PO TID PRN (Reason: Pain) fluoxetine 20 mg Tablet 60 mg PO QAM divalproex 500 mg Tablet Extended Release 24 Hr 1,500 mg PO BEDTIME gabapentin 300 mg Capsule See Rx Instructions .ROUTE .COMPLEX Rx Instructions: Take 2 capsules by mouth in the morning and 3 capsules in the evening. 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
[2024-07-21 09:45] VITALS: BP 138/90; PULSE 75; O2SAT 91
[2024-07-21] MEDS: ketorolac 30 mg/mL INJ 15 MG IVP (09:49)
[2024-07-21 09:51] VITALS: RESP 16; O2SAT 91
[2024-07-21] MEDS: morphine 4 mg/mL SDV 1 mL IVP (09:51)
--- NOTE | 2024-07-21 10:02 | MRR_ITS ---
PROCEDURE INFORMATION: Exam: MR Lumbar Spine Without Contrast Exam date and time: 07/21/2024 10:50 AM Age: 64 years old Clinical indication: Low back pain; Additional info: Chronic low back pain exacerbated by a recent fall TECHNIQUE: Imaging protocol: Magnetic resonance imaging of the lumbar spine without contrast. COMPARISON: 1. CT lumbar spine wo con* [id number] 07/21/2024 8:40 AM 2. MRI lumbar spine dated 06/27/2024 FINDINGS: Limitations: Suboptimal evaluation of multiple sequences secondary to patient motion. Bones/joints: The lumbar vertebral bodies are normally aligned. Stable L3 compression deformity with to 30% loss in height and depression of the superior endplate. Stable T12 superior endplate Schmorl's node. Spinal cord: The conus terminates normally at the T12-L1 level. The roots of the cauda equina are not clumped or thickened. L1-L2: No significant disc bulge or herniation. No severe spinal canal stenosis. No significant neural foraminal narrowing. L2-L3: Broad concentric disc bulge and bilateral facet arthropathy contributing to moderate central canal stenosis. Mild bilateral neuroforaminal narrowing. L3-L4: Broad concentric disc bulge and bilateral facet arthropathy contributing to moderate central canal stenosis. Mild bilateral neuroforaminal narrowing. L4-L5: Broad concentric disc bulge and bilateral facet arthropathy contributing to moderate central canal stenosis. Mild bilateral neuroforaminal narrowing. L5-S1: Broad concentric disc bulge and bilateral facet arthropathy contributing to mild central canal stenosis. Mild bilateral neuroforaminal narrowing. Soft tissues: Unremarkable. MR/MR lumbar spine wo con* [id number] IMPRESSION: Multilevel degenerative changes of the lumbar spine as outlined above.
[2024-07-21 10:18] LABS: Basophils # 0.1 10^3/uL (0.0-0.1); Basophils % 0.7 %; Eosinophils # 0.1 10^3/uL (0.0-0.8); Hematocrit 44.7 % (37-53); Lymphocytes # 2.5 10^3/uL (0.8-4.8); Mean Corpuscular HGB Conc 32.4 g/dL (30-55); Mean Corpuscular Hemoglobin 27.8 pg (27-33); Mean Corpuscular Volume 85.6 fl (82-101); Mean Platelet Volume 8.9 fL (7.4-10.4); Neutrophils # 5.78 10^3/uL (1.8-7.7); Neutrophils % 61.2 %; Nucleated Red Blood Cells % 0 %; Platelet Count 254 10^3/cmm (157-399); Red Blood Count 5.22 10^6/uL (3.85-5.65); Red Cell Distribution Width 13.9 % (12.1-15.1); White Blood Count 9.45 10^3/uL (3.29-11.43)
[2024-07-21 10:43] LABS: Alanine Aminotransferase 22 U/L (0-41); Alkaline Phosphatase 68 U/L (40-130); Anion Gap 15.2 (5-19); Aspartate Amino Transferase 20 U/L (0-40); Blood Urea Nitrogen 9 mg/dL (8-23); Calcium 9.2 mg/dL (8.5-10.5); Carbon Dioxide 26 mmol/L (22-29); Chloride 101 mmol/L (98-107); Globulin 3.2 g/dL (1.3-4.6); Glomerular Filtration Rate 114.3 mL/min (90-130); Glucose 105 mg/dL (65-115); Osmolality Calculated 285 mOsm/kg (285-295); Potassium 4.2 mmol/L (3.5-5.1); Sodium 138 mmol/L (136-145); Total Bilirubin 0.5 mg/dL (0.15-1.2); Total Protein 7.2 g/dL (6.6-8.7)
[2024-07-21 11:30] VITALS: BP 130/84; PULSE 68; O2SAT 91
[2024-07-21 11:57] VITALS: BP 122/75; PULSE 70; O2SAT 93
== END 2024-07-21 11:57 | disposition home or self-care (01) ==
PROVIDERS: Emergency Provider Emergency Medicine; PCP Internal Medicine
DX: M51.16 Intervertebral disc disorders with radiculopathy, lumbar region (principal); Z79.899 Other long term (current) drug therapy; Z79.620 Long term (current) use of immunosuppressive biologic; Z87.891 Personal history of nicotine dependence
CPT/HCPCS: 72131; 72148; 80053; 85025; 96374; 96375; 99285; J1885; J2270

== ENCOUNTER → 2024-08-06 07:59 | Outpatient (BNVA) | payer OTHER, SELFPAY | PROVIDERS: PCP Internal Medicine; Referring Provider Anesthesiology Pain Medicine; Visit Provider Psychiatry & Neurology Neurology | DX: M51.16 Intervertebral disc disorders with radiculopathy, lumbar region (principal); M51.46 Schmorl's nodes, lumbar region | CPT/HCPCS: 95885; 95910 ==

== ENCOUNTER → 2024-08-12 13:13 | Outpatient (BNVA) | payer OTHER, SELFPAY | PROVIDERS: PCP Internal Medicine; Visit Provider Anesthesiology Pain Medicine | DX: M54.9 Dorsalgia, unspecified (principal); M47.816 Spondylosis without myelopathy or radiculopathy, lumbar region | CPT/HCPCS: 99215 ==

== ENCOUNTER → 2024-08-21 14:18 | Outpatient (BNVA) | payer OTHER, SELFPAY | PROVIDERS: PCP Internal Medicine; Visit Provider Anesthesiology Pain Medicine | DX: M54.16 Radiculopathy, lumbar region (principal); M54.9 Dorsalgia, unspecified; M54.50 Low back pain, unspecified | CPT/HCPCS: 64483; 64484; 72110; J1100; J3490; J9999 ==

== ENCOUNTER 2024-08-29 14:38 | Outpatient (CLI) | payer OTHER, SELFPAY ==
--- NOTE | 2024-08-29 14:43 | XR_ITS ---
WS: [email or web address] XR hip RT 2-3V wo/w pel* [id number] REASON FOR EXAM: M25.559 - Pain in unspecified hip FINDINGS: RIGHT HIP: The joint space is intact and relatively well preserved. There is mild subchondral sclerosis and osteophytosis in the acetabulum. No significant abnormality in the femoral head. XR/XR hip RT 2-3V wo/w pel* [id number] IMPRESSION: Minimal osteoarthritis in the right hip. LEFT HIP: No fracture or focal bone lesion. There is mild narrowing of the posterior inferior and superior anterior joint s pace with minimal subchondral sclerosis and osteophytosis of the acetabulum. No significant abnormality of the femoral head. IMPRESSION: Mild osteoarthritis of the left hip.
--- NOTE | 2024-08-29 14:43 | XR_ITS ---
WS: [email or web address] XR hip LT 2-3V wo/w pel* [id number] REASON FOR EXAM: M25.559 - Pain in unspecified hip FINDINGS: No fracture or focal bone lesion. There is mild narrowing in the inferior posterior and anterior superior joint space with mild subchondral sclerosis and osteophytosis of the acetabulum. No significant abnormality of the femoral head. XR/XR hip LT 2-3V wo/w pel* [id number] IMPRESSION: Mild osteoarthritis of the left hip.
== END 2024-08-29 14:39 | disposition home or self-care (01) ==
LOC: RAD 14:39
PROVIDERS: PCP Internal Medicine; Visit Provider Anesthesiology Pain Medicine
DX: M16.12 Unilateral primary osteoarthritis, left hip (principal); M25.551 Pain in right hip
CPT/HCPCS: 73502

== ENCOUNTER → 2024-09-03 08:58 | Outpatient (BNVA) | payer OTHER, SELFPAY | PROVIDERS: PCP Internal Medicine; Visit Provider Anesthesiology Pain Medicine | DX: M54.9 Dorsalgia, unspecified (principal); M47.816 Spondylosis without myelopathy or radiculopathy, lumbar region; M16.0 Bilateral primary osteoarthritis of hip; Z87.891 Personal history of nicotine dependence | CPT/HCPCS: 99214 ==

== ENCOUNTER → 2024-09-11 14:18 | Outpatient (BNVA) | payer OTHER, SELFPAY | PROVIDERS: PCP Internal Medicine; Visit Provider Anesthesiology Pain Medicine | DX: M16.11 Unilateral primary osteoarthritis, right hip (principal) | CPT/HCPCS: 20610; 77002; J1010; J3490 ==

== ENCOUNTER → 2024-11-05 08:25 | Outpatient (BNVA) | payer OTHER, SELFPAY | PROVIDERS: PCP Internal Medicine; Visit Provider Anesthesiology Pain Medicine | DX: M54.9 Dorsalgia, unspecified (principal); M47.816 Spondylosis without myelopathy or radiculopathy, lumbar region; M16.0 Bilateral primary osteoarthritis of hip | CPT/HCPCS: 99214 ==

== ENCOUNTER → 2024-11-13 08:16 | Outpatient (BNVA) | payer OTHER, SELFPAY | PROVIDERS: PCP Internal Medicine; Visit Provider Anesthesiology Pain Medicine | DX: M79.10 Myalgia, unspecified site (principal); M47.816 Spondylosis without myelopathy or radiculopathy, lumbar region; M16.0 Bilateral primary osteoarthritis of hip | CPT/HCPCS: 20553; 99214; J1010; J3490 ==

== ENCOUNTER 2024-11-28 08:15 | Emergency (ER) | payer OTHER, SELFPAY ==
[2024-11-28] VITALS (9 sets, daily range): BP systolic 141; BP diastolic 93; PULSE 57–91; RESP 14–20; TEMP 36.9; O2SAT 92–97; BMI 33.7
--- NOTE | 2024-11-28 08:16 | ECG_ITS ---
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 Measurements Intervals [place] Rate: 67 P: 60 NC: 165 QRS: -9 QRSD: 92 T: 18 QT: 376 QTc: 398 Interpretive Statements SINUS RHYTHM LOW QRS VOLTAGE IN PRECORDIAL LEADS [QRS DEFLECTION < 1.0 mV IN CHEST LEADS] MODERATE ST DEPRESSION [0.05+ mV ST DEPRESSION] Compared to ECG 06/23/2024 12:12:53 Low QRS voltage now present ST (T wave) deviation now present Electronically Signed On 11-28-2024 18:52:00 CDT by Oleg Segundo M.D. [email or web address] [id number]
--- OUTSIDE RECORDS SUMMARY | 2024-11-28 08:20 | XMS_ITS | Clinical Summary ---
Author Organization [facility] Address [address] Attn: Epic Prelude ADT [place] [address] Care Team Providers Care Mailmaster Name Role Phone Tonya Cruz Kimmy FLORES Primary Care Provider [phone] Allergies Active Allergy Reactions Criticality Noted Date Comments Hydrocodone Other (See Comments) 10/15/2024 Knocks him out if he takes a full dose Can take 1/2 dose Medications albuterol sulfate HFA 90 mcg/actuation aerosol inhaler Take 2 Puffs by inhalation every 6 hours as needed for Shortness of Breath. Active traZODone 50 mg tablet Take 50 mg by mouth daily at bedtime. Active gabapentin 400 mg capsule Take 400 mg by mouth 3 times daily. Active divalproex (DEPAKOTE) 500 mg delayed release tablet Take 500 mg by mouth 2 times daily. 7 Active multivitamin (DAILY-VALDEMAR) tablet Take 1 Tablet by mouth daily. 7 Active ascorbic acid, vitamin C, (VITAMIN C) 1,000 mg Tablet Take 1,000 mg by mouth daily. 7 Active budesonide-form oteroL (SYMBICORT) 160-4.5 mcg/actuation HFA Aerosol Inhaler Take 2 Puffs by inhalation 2 times daily. 10.2 Gram 4 Active busPIRone (BUSPAR) 5 mg tablet Take 5 mg by mouth 3 times daily. For Anxiety 5 Active hydroCHLOROthia zide 25 mg tablet Take 12.5 mg by mouth daily. EVERY MORNING FOR BLOOD PRESSURE Active omeprazole (PriLOSEC) 40 mg Capsule, Delayed Release(E.C.) Take 40 mg by mouth daily. Active acetaminophen (TYLENOL) 500 mg tablet Take 500 mg by mouth every 6 hours as needed for Pain, Moderate. Active adalimumab-bwwd 40 mg/0.8 mL Auto-Injector Inject 40 mg by subcutaneous injection every 2 weeks. Active Active Problems Problem Noted Date Diagnosed Date Sedated due to multiple medications 10/15/2023 Chronic obstructive pulmonary disease 05/16/2023 Barretts esophagus 05/09/2023 History of small bowel obstruction 05/09/2023 Plaque psoriasis 05/09/2023 Bipolar disorder, in full re mission, most recent episode mixed 05/09/2023 Gastroesophageal reflux dise ase with esophagitis without hemorrhage 05/09/2023 Generalized anxiety disorder 05/09/2023 Benign essential hypertension 05/09/2023 Radiculopathy, lumbar region 05/09/2023 Sensorineural hearing loss, bilateral 05/09/2023 Resolved Problems Problem Noted Date Diagnosed Date Resolved Date Severe obesity (BMI 35.0-39. 9) with comorbidity 05/16/2023 06/19/2024 Ear pain, bilateral 04/17/2023 05/09/19 COVID-19 virus infection 04/17/202301/2024 Pneumonia due to COVID-19 virus 11/17/2021 06/14/2023 SBO (small bowel obstruction) 07/28/2016 05/09/2023 Encounters Date Type Department Care Team Description 11/13/2024 External Device Data [facility] ABSTRACTION Provider, Abstract 11/12/2024 External Device Data [facility] ABSTRACTION Provider, Abstract 10/23/2024 External Device Data [facility] ABSTRACTION Provider, Abstract 10/22/2024 External Device Data [facility] ABSTRACTION Provider, Abstract 10/22/2024 External Device Data [facility] ABSTRACTION Provider, Abstract 10/15/2024 1:09 PM CDT - 10/15/2024 3:45 PM CDT Emergency [facility] Emergency Medicine [address] [place] [address] Cesario Dawkins DO Contusion of left shoulder, initial encounter (Primary Dx); Injury of head, initial encounter Discharge Disposition: Home or Self Care 10/15/2024 Travel 10/02/2024 External Device Data ST[facility] ABSTRACTION Provider, Abstract 09/11/2024 External Device Data [facility] ABSTRACTION Provider, Abstract 09/10/2024 External Device Data ST[facility] ABSTRACTION Provider, Abstract from Last 3 Months Social History Tobacco Use Types Packs/Day Years Used Date Smoking Tobacco: Former Cigarettes Passive Smoke Exposure: Past Smokeless Tobacco: Never Tobacco Cessation:Counseling Given: No Alcohol Use Standard Drinks/Week Comments No 0 (1 standard drink = 0.6 oz pur e alcohol) Feeling Safe Answer Date Recorded Are you in a relationship wi th someone who hurts you emotionally and/or physically? 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 Gender Identity Not on file Sexual Orientation Not on file Last Filed Vital Signs Vital Sign Reading Time Taken Comments Blood Pressure 136/86 10/15/2024 2:30 PM CDT Pulse 67 10/15/2024 3:30 PM CDT Temperature 36.8 C (98.2 F) 10/15/2024 1:20 PM CDT Respiratory Rate 18 10/15/2024 3:30 PM CDT Oxygen Saturation 95% 10/15/2024 3:30 PM CDT Inhaled Oxygen Concentration - - Weight 112.5 kg (248 lb 1.6 oz) 10/15/2024 1:20 PM CDT Height 177.8 cm (5' 10 ) 10/15/2024 1:20 PM CDT Body Mass Index 35.6 10/15/2024 1:20 PM CDT Plan of Treatment Health Maintenance Due Date Last Done Comments FIT/ DNA Q 3 YEARS (AUTO ORDER) 1980 FIT/FOBT Q 1 YEAR (AUTO ORDER) 1980 FLEX SIG/CT COLONOGRAPHY Q 5 YEARS (AUTO ORDER) 1980 COLORECTAL CANCER SCREENING (AUTO ORDER) 07/06/2007 COLORECTAL SCREENING 07/06/2007 Colorectal Cancer Screening (AUTO ORDER) 07/06/2007 Colorectal Cancer Screening 07/06/2007 FIT-DNA Q 3 years 07/06/2007 FIT/FOBT Q 1 year 07/06/2007 Flex Sig/CT Colonography Q 5 years 07/06/2007 RSV VACCINE (60+ or ) (1 - Risk 60-74 years 1-dose series) 2022 INFLUENZA VACCINE (#1) 2024 , 11/18/2022, 03/15/2022, Additional history exists Traditional Medicare (ACO) A nnual Wellness Visit 07/12/2025 07/11/2024, 07/28/2023 Pre-Diabetes and Diabetes Screening 07/27/2026 07/28/2023 DTAP/TDAP/TD VACCINES (4 - T d or Tdap) 07/24/2031 07/23/2021, 01/27/2012, 08/05/2010, Additional history exists ZOSTER VACCINE Completed 03/15/2022, 09/14/2021 Procedures Procedure Name Priority Date/Time Associated Diagnosis Comments XR SHOULDER 2+ VW LEFT Stat 10/15/2024 2:[address] HEAD WO CONTRAST Stat 10/15/2024 2 :06 PM CDT HEMOGLOBIN A1C Routine 07/28/2023 1:48 PM CDT Memory loss Benign essential hypertension Underwood's esophagus with dysplasia Severe obesity (BMI 35.0-39.9) with comorbidity (CMS/HCC) Impaired fasting glucose from Last 3 Months or Most Recently Relevant to Health Maintenance Results * XR SHOULDER 2+ VW LEFT (10/15/2024 2:06 PM CDT) Anatomical Region Laterality Modality Upper Extremity Computed Radiogr aphy 10/15/2024 2:06 PM CDT Impressions 10/15/2024 2:21 PM CDT IMPRESSION: Please see below. Exam: XR SHOULDER 2+ VW LEFT Date/Time of Exam: 10/15/2024 2:06 PM Reason For Exam: Injury. Diagnosis: See Reason for Exam. Comparison: None. Findings: Three views of the shoulder demonstrate no acute fracture or dislocation. Diffuse osteopenia is present. No significant joint space loss or productive change is identified. Impression: 1. Negative for acute osseous abnormality. Narrative Procedure Note Tank Silva MD - 10/15/2024 IMPRESSION: Please see below. Exam: XR SHOULDER 2+ VW LEFT Date/Time of Exam: 10/15/2024 2:06 PM Reason For Exam: Injury. Diagnosis: See Reason for Exam. Comparison: None. Findings: Three views of the shoulder demonstrate no acute fracture or dislocation. Diffuse osteopenia is present. No significant joint space loss or productive change is identified. Impression: 1. Negative for acute osseous abnormality. Cesario Sheffield Marzia DO DIAGNOSTIC IMAGING ORDERABLES Final Result * CT HEAD WO CONTRAST (10/15/2024 2:06 PM CDT) Anatomical Region Laterality Modality Head Computed Tomogra phy 10/15/2024 1:45 PM CDT Impressions 10/15/2024 2:15 PM CDT IMPRESSION: Please see below. Exam: CT HEAD WO CONTRAST Date/Time of Exam: 10/15/2024 2:06 PM Reason For Exam: pedroza, lethargy, suspect concussion. Diagnosis: See Reason for Exam. Technique: CT of the head was performed without the administration of intravenous contrast. Comparison: CT head without contrast 10/15/2023. Findings: The ventricles are normal and the kay-white junction is well defined. No evidence of an acute infarct, mass or hemorrhage. Intact calvarium. No fluid in the middle ear cavities or mastoid air cells. The visualized sinuses are clear. The visualized orbits are normal. IMPRESSION: 1. No acute abnormality or significant change. Narrative Procedure Note Jaleel Austin MD - 10/15/2024 IMPRESSION: Please see below. Exam: CT HEAD WO CONTRAST Date/Time of Exam: 10/15/2024 2:06 PM Reason For Exam: pedroza, lethargy, suspect concussion. Diagnosis: See Reason for Exam. Technique: CT of the head was performed without the administration of intravenous contrast. Comparison: CT head without contrast 10/15/2023. Findings: The ventricles are normal and the kay-white junction is well defined. No evidence of an acute infarct, mass or hemorrhage. Intact calvarium. No fluid in the middle ear cavities or mastoid air cells. The visualized sinuses are clear. The visualized orbits are normal. IMPRESSION: 1. No acute abnormality or significant change. Cesario Dawkins DO CT ORDERABLES Final Result * (ABNORMAL) HEMOGLOBIN A1C (07/28/2023 1:48 PM CDT) HEMOGLOBIN A1C 5.8(H) <5.7 % of total Hgb [facility] Comment: For someone without known diabetes, a hemoglobin A1c value between 5.7% and 6.4% is consistent with prediabetes and should be confirmed with a follow-up test. For someone with known diabetes, a value <7% indicates that their diabetes is well controlled. A1c targets should be individualized based on duration of diabetes, age, comorbid conditions, and other considerations. This assay result is consistent with an increased risk of diabetes. Currently, no consensus exists regarding use of hemoglobin A1c for diagnosis of diabetes for children. ESTIMATED AVERAGE GLUCOSE (MG/DL) 120 mg/dL [facility] ESTIMATED AVERAGE GLUCOSE (MMOL/L) 6.6 mmol/L [facility] [place] Comment: This test was performed on the Meredith pato c503 platform. Effective 05/15/23, a change in test platforms from the [place] Historian to the Meredith pato c503 may have shifted HbA1c results compared to historical results. Based on laboratory validation testing conducted at [facility], the Meredith platform relative to the [place] platform had an average increase in HbA1c value of < or = 0.3%. This difference is within accepted variability established by the National Glycohemoglobin Standardization Program. Note that not all individuals will have had a shift in their results and direct comparisons between historical and current results for testing conducted on different platforms is not recommended. Test Performed at: [facility] [id number] [id number] Espinoza Vegas MD Blood 07/28/2023 1:48 PM CDT 07/29/2023 3:16 AM CDT Tonya Cruz DO CHEMISTRY ORDERABLES Final Result [facility] [phone] [facility] [address] [phone] from Last 3 Months or Most Recently Relevant to Health Maintenance Insurance MEDICARE PART A AND B MEDICARE PART A AND B [facility] OFFICE OF [facility] OFFICE OF COMMUNITY CARE MEDICARE PART A AND B [facility] Advance Directives For more information, please contact: [phone] Documents on File Type Date Recorded 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
--- NOTE | 2024-11-28 08:46 | XRR_ITS ---
PROCEDURE INFORMATION: Exam: XR Chest Exam date and time: 11/28/2024 8:46 AM Age: 64 years old Clinical indication: Pain; Angina pectoris; Additional info: Chest pain TECHNIQUE: Imaging protocol: Radiologic exam of the chest. Views: 1 view. COMPARISON: CT angio chest PE protcl [id number] 05/12/2024 9:54 PM FINDINGS: Lungs: The chest is hypoventilatory but clear. Pleural spaces: Unremarkable. No pleural effusion. No pneumothorax. Heart/Mediastinum: Unremarkable. No cardiomegaly. Bones/joints: Unremarkable. XR/XR chest 1V portable [id number] IMPRESSION: Clear hypoventilatory chest.
[2024-11-28 08:55] LABS: Hematocrit 43.5 % (37-53); Hemoglobin 14.30 g/dL (11.27-16.99); Mean Corpuscular HGB Conc 32.9 g/dL (30-55); Mean Corpuscular Hemoglobin 28.7 pg (27-33); Mean Corpuscular Volume 87.2 fl (82-101); Nucleated Red Blood Cells % 0 %; Platelet Count 220 10^3/cmm (157-399); Red Blood Count 4.99 10^6/uL (3.85-5.65); White Blood Count 6.25 10^3/uL (3.29-11.43)
--- NOTE | 2024-11-28 09:05 | W.ED.CHESTPA ---
HPI - Chest Pain General: Chief Complaint: Chest Pain Stated Complaint: CP L arm Pain Time Seen by Provider: 11/28/24 08:23 History of Present Illness: 62-year-old male presents emergency room with complaint of chest pain that started last night. He has no history of any coronary artery disease he was not doing anything exertional when it began to wax and wane since then. He chronically had pain in his left leg. He is now complaining of left arm pain. He says it is difficult to discern whether it is from a shoulder injury he sustained last month or if this is new or different. He he did tell me at times he has numbness in the arm and that is a new symptom. His chest pain is worse when he takes a deep breath and is very positional and may have him set up to auscultate his lungs complains of more severe chest discomfort radiating into his back. No fever sweats chills no productive cough no syncopal episodes. Associated symptoms: Deny abdominal pain, dyspnea or fever(s) Related Data Home Medications ?Medication ?Instructions ?Recorded ?Confirmed acetaminophen 500 mg tablet 1,000 mg PO TID PRN Pain 01/03/23 11/13/24 divalproex 500 mg tablet,extended 1,500 mg PO BEDTIME 01/03/23 11/13/24 release 24 hr fluoxetine 20 mg tablet 60 mg PO QAM 01/03/23 11/13/24 gabapentin 300 mg capsule See Rx Instructions .Route .COMPLEX 01/03/23 11/13/24 hydrochlorothiazide 25 mg tablet 12.5 mg PO DAILY 01/03/23 11/13/24 trazodone 50 mg tablet 50 mg PO BEDTIME 01/03/23 11/13/24 vitamin B12 0.5 mg-folic acid 1 mg 1 tab PO DAILY 01/03/23 11/13/24 tablet adalimumab 40 mg/0.8 mL 40 mg SUBCUT Q14D 07/21/24 11/13/24 subcutaneous syringe kit (Humira) buspirone 5 mg tablet 5 mg PO TID 07/21/24 11/13/24 omeprazole 40 mg capsule,delayed 40 mg PO DAILY 07/21/24 11/13/24 release Previous Rx's ?Medication ?Instructions ?Recorded STRANGE TLSO brace #1 ea 07/19/24 hydrocodone 7.5 mg-acetaminophen 1 tab PO Q4H PRN pain 5 days #20 07/19/24 325 mg tablet tabs tizanidine 2 mg tablet 2 mg PO BID PRN muscle spasticity 07/19/24 #30 tabs aspirin 81 mg tablet,delayed 81 mg PO DAILY #30 tabs 11/28/24 release isosorbide mononitrate 30 mg 30 mg PO DAILY #30 tabs 11/28/24 tablet,extended release 24 hr Allergies Allergy/AdvReac Type Severity Reaction Status Date / Time No Known Allergies Allergy Verified 11/13/24 08:00 Review of Systems Const: Denies: fever(s) or chills Card: Reports: chest pain Resp: Denies: dyspnea GI: Denies: abdominal pain : Denies: dysuria, urinary frequency or urinary urgency Musc: Denies: neck pain or back pain Skin/Breast: Denies: rash PFSH ED PFSH: Medical History Hemangioma of vertebral body Lumbar disc disease with radiculopathy Schmorl nodes of lumbar region Compression fracture of vertebral column Social History Smoking and tobacco/nicotine status: former use of tobacco/nicotine Physical Exam Const: COMMON NORMALS: no acute distress GENERAL APPEARANCE: cooperative and comfortable ORIENTATION/CONSCIOUSNESS: Yes awake, Yes oriented to person, Yes oriented to place and Yes oriented to time HENMT: COMMON NORMALS: normocephalic, atraumatic and hearing grossly normal bilaterally HEAD & SCALP: normocephalic and atraumatic Resp: COMMON NORMALS: normal respiratory effort, No retractions, No use of accessory muscles and clear to auscultation bilaterally AUSCULTATION: clear to auscultation bilaterally Cardio: COMMON NORMALS: regular rate, regular rhythm and No murmurs present (Cardio) RATE: regular rate RHYTHM: regular rhythm GI: COMMON NORMALS: Soft to palpation and No hepatosplenomegaly present AUSCULTATION: Yes normoactive bowel sounds PALPATION: Yes Soft to palpation, No Tenderness to palpation present (GI), No Guarding due to palpation present (GI) and Yes No hepatosplenomegaly present Extremity: COMMON NORMALS: normal to inspection, capillary refill normal, no clubbing, cyanosis or edema, no calf tenderness and no pedal edema Neuro: SENSORIUM/ORIENTATION: Yes oriented to person, Yes oriented to place and Yes oriented to time Skin: COMMON NORMALS: no rashes or lesions noted GENERAL SKIN EXAM: no rashes or lesions noted Course Vital Signs: Vital signs: Vital Signs Temperature 98.4 F 11/28/24 08:23 Pulse Rate 67 11/28/24 12:40 Respiratory Rate 19 H 11/28/24 11:30 Blood Pressure 141/93 11/28/24 10:00 Pulse Oximetry 94 11/28/24 12:40 Oxygen Delivery Me thod Room Air 11/28/24 08:23 MDM - Chest Pain Medical Decision Making Pain in the left shoulder is musculoskeletal reproducible with motion in the shoulder. Discussed with patient reviewed findings including EKG chest x-ray and laboratory testing patient preferred to discharge home will discharge home started on isosorbide mononitrate 30 mg daily also start baby aspirin daily set him up for an outpatient stress test return if he has any recurrence of symptoms. Medical Records I reviewed the patient's medical records. Lab Data I reviewed the patient's lab results. 11/28/24 08:29 11/28/24 08:29 Radiology Impressions Chest X-Ray 11/28/24 08:46 IMPRESSION: Clear hypoventilatory chest. Laboratory Results WBC 6.25 10^3/uL (3.29-11.43) 11/28/24 08:29 RBC 4.99 10^6/uL (3.85-5.65) 11/28/24 08:29 Hgb 14.30 g/dL (11.27-16.99) 11/28/24 08:29 Hct 43.5 % (37-53) 11/28/24 08:29 MCV 87.2 fl (82-101) 11/28/24 08:29 MCH 28.7 pg (27-33) 11/28/24 08:29 MCHC 32.9 g/dL (30-55) 11/28/24 08:29 RDW 13.9 % (12.1-15.1) 11/28/24 08:29 Plt Count 220 10^3/cmm (157-399) 11/28/24 08:29 MPV 9.3 fL (7.4-10.4) 11/28/24 08: Neut % (Auto) 57.3 % 11/28/24 08: Lymph % (Auto) 32.0 % 11/28/24 08: Thomas % (Auto) 8.5 % 11/28/24 08: Eos % (Auto) 1.3 % 11/28/24 08: Baso % (Auto) 0.6 % 11/28/24 08: Neut # (Auto) 3.58 10^3/uL (1.8-7.7) 11/28/24 08: Lymph # (Auto) 2.0 10^3/uL (0.8-4.8) 11/28/24 08: Thomas # (Auto) 0.5 10^3/uL (0.2-0.9) 11/28/24 08: Eos # (Auto) 0.1 10^3/uL (0.0-0.8) 11/28/24 08: Baso # (Auto) 0.0 10^3/uL (0.0-0.1) 11/28/24 08: Nucleated RBC % (auto) 0 % 11/28/24 08: Nucleated RBCs # 0.0 /100WBC 11/28/24 08: Sodium 139 mmol/L (136-145) 11/28/24 08: Potassium 4.0 mmol/L (3.5-5.1) 11/28/24 08: Chloride 101 mmol/L (98-107) 11/28/24 08: Carbon Dioxide 24 mmol/L (22-29) 11/28/24 08: Anion Gap 18.0 (5-19) 11/28/24 08: BUN 10 mg/dL (8-23) 11/28/24 08: Creatinine 0.8 mg/dL (0.7-1.2) 11/28/24 08: GFR Calculation 98.0 mL/min (90-130) 11/28/24 08: Glucose 147 mg/dL (65-115) H 11/28/24 08: Calculated Osmolality 290 mOsm/kg (285-295) 11/28/24 08: Calcium 9.2 mg/dL (8.5-10.5) 11/28/24 08: Total Bilirubin 0.2 mg/dL (0.15-1.2) 11/28/24 08:29 AST 20 U/L (0-40) 11/28/24 08:29 ALT 22 U/L (0-41) 11/28/24 08:29 Alkaline Phosphatase 70 U/L (40-130) 11/28/24 08:29 Troponin T Baseline 8 ng/L (0-15) 11/28/24 08:29 Troponin T 120 Minute 7.87 ng/L (0-15) 11/28/24 10:08 Delta Troponin T -0.13 ABS# (0-10) L 11/28/24 10:08 Total Protein 6.6 g/dL (6.6-8.7) 11/28/24 08:29 Albumin 4.2 g/dL (3.5-5.2) 11/28/24 08:29 Globulin 2.4 g/dL (1.3-4.6) 11/28/24 08:29 All radiology interpretation(s) finalized by discharge EKG Data EKG 1: Interpretation: EKG 11/28/2024 816 sinus rhythm rate of 67 VA interval 165 QTc 391[address] No acute ST elevation. No significant change compared to EKG from 06/23/2024 EKG 2: Interpretation: EKG 11/28/2024 1139 sinus bradycardia rate of 54 VA interval 172 QTc [address] elevation. No significant change from EKG reviewed previous and same-day Discharge Plan Discharge Patient Disposition: Home Clinical Impression: Atypical chest pain, Sprain of left shoulder Condition: Stable Prescriptions: New isosorbide mononitrate 30 mg tablet extended release 24 hr 30 mg PO DAILY Qty: 30 0RF aspirin 81 mg tablet,delayed release (DR/EC) 81 mg PO DAILY Qty: 30 0RF No Action (DME) STRANGE TLSO brace See Rx Instructions .Route .MEDSUPPLY Qty: 1 0RF Rx Instructions: As directed hydrocodone-acetaminophen 7.5-325 mg tablet 1 tab PO Q4H PRN (Reason: pain) 5 Days Qty: 20 0RF tizanidine 2 mg tablet 2 mg PO BID PRN (Reason: muscle spasticity) Qty: 30 1RF Rx Instructions: may take 2 to 3 times daily. trazodone 50 mg Tablet 50 mg PO BEDTIME acetaminophen 500 mg Tablet 1,000 mg PO TID PRN (Reason: Pain) fluoxetine 20 mg Tablet 60 mg PO QAM divalproex 500 mg Tablet Extended Release 24 Hr 1,500 mg PO BEDTIME gabapentin 300 mg Capsule See Rx Instructions .ROUTE .COMPLEX Rx Instructions: Take 2 capsules by mouth in the morning and 3 capsules in the evening. hydrochlorothiazide 25 mg Tablet 12.5 mg PO DAILY vitamin Y27-qbsqr acid 0.5-1 mg Tablet 1 tab PO DAILY buspirone 5 mg Tablet 5 mg PO TID omeprazole 40 mg Capsule,Delayed Release(Dr/Ec) 40 mg PO DAILY Humira 40 mg/0.8 mL Syringe Kit 40 mg SUBCUT Q14D Discharge Orders: Discharge ED (Routine); Ordered 11/28/24 Ordered By: Narciso Dahl Referrals: Monica Guy MD [Primary Care Provider, Internal Medicine] Discharge Diet: Usual diet Discharge Activity: Increase activity as tolerated Patient Instructions: Opioid Safety, Pain Management, Patient Portal & Arlene Instructions Activity Restrictions/Additional Instructions: Thank you for choosing [facility] for your healthcare needs today. It is very important that you follow up as instructed or that you return to the Emergency Department should you have concerns or if your condition changes or worsens in any way. Emergency department visits are focused on emergent conditions, in some cases you may require further evaluation on an outpatient basis. You were seen today with complaints of chest pain and arm pain. Your EKGs cardiac enzymes were normal. Blood pressure is mildly elevated would recommend you start isosorbide mononitrate 1 tablet daily also start on baby aspirin daily. Case management make arrangements for rehab and outpatient stress test. (Please note that included in your discharge packet is information concerning opioid safety and pain management. This information is given to all patients were discharged from the ER regardless of their discharge diagnosis or the medicines they usually take or are prescribed.) Print Language: Israeli Coding Level of Care Code ED [employer]er [employer] for [employer]g Fwd Heart Score HEART Score Components History: Slightly Suspicous EKG: Non-specific Changes Age: 45-64 yrs Risk Factors: 1 or 2 Risk Factors Troponin: Baseline Trop <16 ng/L HEART Score RESULT HEART Score: 3
[2024-11-28 09:06] LABS: Alanine Aminotransferase 22 U/L (0-41); Albumin Level 4.2 g/dL (3.5-5.2); Alkaline Phosphatase 70 U/L (40-130); Anion Gap 18.0 (5-19); Aspartate Amino Transferase 20 U/L (0-40); Blood Urea Nitrogen 10 mg/dL (8-23); Calcium 9.2 mg/dL (8.5-10.5); Carbon Dioxide 24 mmol/L (22-29); Chloride 101 mmol/L (98-107); Creatinine Clr Calc Pharmacy 117.0509; Globulin 2.4 g/dL (1.3-4.6); Glucose 147 mg/dL (65-115); Osmolality Calculated 290 mOsm/kg (285-295); Potassium 4.0 mmol/L (3.5-5.1); Sodium 139 mmol/L (136-145); Total Protein 6.6 g/dL (6.6-8.7)
[2024-11-28 09:07] LABS: Troponin(5th) Baseline 8 ng/L (0-15)
[2024-11-28 10:29] LABS: Troponin 5 2HR 7.87 ng/L (0-15); Troponin 5 2HR Delta -0.13 ABS# (0-10)
--- NOTE | 2024-11-28 10:46 | ECG_ITS ---
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 Measurements Intervals [place] Rate: 54 P: 12 MS: 172 QRS: -17 QRSD: 99 T: -10 QT: 441 QTc: 420 Interpretive Statements SINUS BRADYCARDIA MODERATE VOLTAGE CRITERIA FOR LVH, CONSIDER NORMAL VARIANT [MEETS CRITERIA IN ONE OF: R(aVL), S(V1), R(V5), R(V5/V6)+S(V1)] MINIMAL ST DEPRESSION [0.025+ mV ST DEPRESSION] Compared to ECG 11/28/2024 08:16:40 Sinus rhythm no longer present ST (T wave) deviation still present Electronically Signed On 11-28-2024 18:58:28 CDT by Oleg Segundo M.D. [email or web address] [id number]
--- NOTE | 2024-12-02 07:06 | DCPLANNER ---
faxed outpatient fior order to scheduling
== END 2024-11-28 12:41 | disposition home or self-care (01) ==
PROVIDERS: Emergency Provider Family Medicine; PCP Internal Medicine
DX: R07.89 Other chest pain (principal); S43.402A Unspecified sprain of left shoulder joint, initial encounter; Z87.891 Personal history of nicotine dependence; X58.XXXA Exposure to other specified factors, initial encounter
CPT/HCPCS: 36415; 71045; 80053; 84484; 85025; 93005; 99285; J9999

== ENCOUNTER 2024-12-05 07:22 | Outpatient (CLI) | payer OTHER, SELFPAY ==
[2024-12-05 07:47] VITALS: BMI 35.9
--- NOTE | 2024-12-05 07:47 | ECG_ITS ---
[facility] Test Date: 2024-12-05 Pat Name: Jason Santamaria Department: Room: Gender: Male Pre Planning Advisor: : 1960 Requested By: Narciso nOeal Order Number: [id number] Anuja MD: Reynaldo Salmeron M.D. Interpretive Statements LEXISCAN: Procedure: At the baseline, the blood pressure was 126/80 mmHg with a heart rate of 63 bpm. The electrocardiogram showed normal sinus rhythm with normal ST and T's. The Lexiscan was infused over a period of 20 seconds. A total of 0.4 mg of Lexiscan was infused. The stress phase was continued for a total of 5 minutes. Heart rate was at the end of stress phase was 78 bpm and a blood pressure of 120/83 mmHg. The EKG at the peak infusion revealed normal sinus rhythm with no significant ST-T wave changes. Sestamibi was injected 20 seconds after the Lexiscan infusion. Blood pressure at the end of recovery phase was 133/75 mmHg with a heart rate of 74 bpm. Conclusion: 1. Normal EKG response to Lexiscan infusion 2. No Lexiscan induced chest pain or cardiac arrhythmia. 3. Normal blood pressure and heart rate response. 4. Sestamibi/sestamibi perfusion scan pending; see separate report. Electronically Signed On 12-14-2024 20:22:56 CDT by Reynaldo Salmeron M.D. [email or web address]
--- NOTE | 2024-12-05 07:49 | NMCV_ITS ---
NM jayde perf SPECT r/s* [id number] Jason Santamaria Age: 64 Gender: M : 1960 Exam Date: 12/05/2024 08:29 Ordering Phys: Narciso Dahl DO Technologist: DONTE Calderon Exam Location: [facility] Indications: cp STRESS TEST Please see separate stress test report in [facility] for full findings IMAGE PROTOCOL Rest/Stress 1 Lexiscan Day Radiopharmaceutical Dose (mCi) Administration Site Administered by Rest: Tc-99m 10.5 IV DONTE Calderon Sestamibi Stress:Tc-99m 32.6 IV DONTE Blank Sestamibi Rest: 05-Dec-2024 60 Discovery 630 Stress: 05-Dec-2024 30 Discovery 630 0.4mg Lexiscan. Supine position only as patient was unable to lay prone. SPECT RESULTS Technical Quality: Good Raw Data Analysis: Normal Image Corrections: No attenuation or motion correction applied Summed Stress Score: 4 Summed Rest Score: 2 Summed Difference Score: 3 PERFUSION FINDINGS Medium sized area of fixed perfusion defect noted in basal to mid inferior wall with medium sized area of moderate reversibility suggestive of old myocardial infarction surrounded by medium sized area of moderate kiel-infarct ischemia noted in dominant circumflex artery RCA. FUNCTIONAL RESULTS (calculated via Gated SPECT) Stress Image LV EF (%): 68 Stress EDV (mL):98 TID: 1.12 Stress ESV (mL):31 FUNCTIONAL FINDINGS: There is normal left ventricular systolic function. IMPRESSIONS Medium sized area of old myocardial infarction surrounded by medium sized area of moderate kiel-infarct ischemia noted in basal to mid inferior and inferolateral wall noted. It is suggestive of possible lesion in circumflex or RCA territory. Trevor Mcgraw MD (Electronically Signed) Final Date: 05 December 2024 12:52 S
[2024-12-05 09:11] VITALS: BP 133/75; PULSE 74
== END 2024-12-05 07:23 | disposition home or self-care (01) ==
PROVIDERS: PCP Internal Medicine; Visit Provider Family Medicine
DX: R07.9 Chest pain, unspecified (principal); R93.1 Abnormal findings on diagnostic imaging of heart and coronary circulation
CPT/HCPCS: 36415; 78452; 93017; 96374; A9500; J2785

== ENCOUNTER 2024-12-16 09:48 | Emergency (ER) | payer OTHER, SELFPAY ==
[2024-12-16 10:30] VITALS: BP 145/89; PULSE 68; RESP 16; TEMP 36.7; O2SAT 94; BMI 32.3
[2024-12-16 11:08] VITALS: BP 142/89; PULSE 58; RESP 17; O2SAT 96
--- NOTE | 2024-12-16 11:25 | W.ED.BACK ---
HPI - Back Pain/Injury General: Chief Complaint: Back Pain/Injury Stated Complaint: Back pain Time Seen by Provider: 12/16/24 10:41 Source: patient and old records reviewed Mode of arrival: wheelchair Limitations: no limitations History of Present Illness: Patient is a 64-year-old male with past medical history of lumbar disc disease and chronic peripheral neuropathy presenting to the emergency department for 12/06 low back pain and inability to ambulate. States that his entire legs are numb bilaterally, he has a history of numbness in his feet but states that the numbness has never been this high up. Still has control over his bowel and bladder. Arrives in a wheelchair, nursing staff required to assist him into the bed, he notes that this causes his pain to significantly worsen, any movement. He has no fevers. No history of IV drug use. He was seen by pain management this morning, patient tells me he was ambulatory at that time and within the past couple of hours has lost the feeling in his legs. Family room states that this has happened in the past before. He had an MRI in June showing chronic lumbar changes. Denies any recent trauma to his back. Primarily the pain in the bilateral paralumbar muscles. Appears that he is set to receive transforaminal epidural steroid injection, this was discussed at his appointment this morning. MD elicited complaint: back pain and other (peripheral numbness, can't walk) Pertinent past history: prior back pain and neurological deficit Onset (ago): hour(s) Timing: progressively worsening Associated symptoms: Reports difficulty walking; Deny abdominal pain, fecal incontinence, fever(s) or syncope Related Data Home Medications ?Medication ?Instructions ?Recorded ?Confirmed acetaminophen 500 mg tablet 1,000 mg PO TID PRN Pain 01/03/23 12/16/24 divalproex 500 mg tablet,extended 1,500 mg PO BEDTIME 01/03/23 12/16/24 release 24 hr fluoxetine 20 mg tablet 60 mg PO QAM 01/03/23 12/16/24 gabapentin 300 mg capsule See Rx Instructions .Route .COMPLEX 01/03/23 12/16/24 hydrochlorothiazide 25 mg tablet 12.5 mg PO DAILY 01/03/23 12/16/24 trazodone 50 mg tablet 50 mg PO BEDTIME 01/03/23 12/16/24 vitamin B12 0.5 mg-folic acid 1 mg 1 tab PO DAILY 01/03/23 12/16/24 tablet adalimumab 40 mg/0.8 mL 40 mg SUBCUT Q14D 07/21/24 12/16/24 subcutaneous syringe kit (Humira) buspirone 5 mg tablet 5 mg PO TID 07/21/24 12/16/24 omeprazole 40 mg capsule,delayed 40 mg PO DAILY 07/21/24 12/16/24 release Previous Rx's ?Medication ?Instructions ?Recorded STRANGE TLSO brace #1 ea 07/19/24 hydrocodone 7.5 mg-acetaminophen 1 tab PO Q4H PRN pain 5 days #20 07/19/24 325 mg tablet tabs tizanidine 2 mg tablet 2 mg PO BID PRN muscle spasticity 07/19/24 #30 tabs aspirin 81 mg tablet,delayed 81 mg PO DAILY #30 tabs 11/28/24 release isosorbide mononitrate 30 mg 30 mg PO DAILY #30 tabs 11/28/24 tablet,extended release 24 hr lidocaine 5 % topical patch See Rx Instructions topical 12/16/24 .COMPLEX #15 ea Allergies Allergy/AdvReac Type Severity Reaction Status Date / Time No Known Allergies Allergy Verified 12/16/24 09:05 Review of Systems General: Reports: 10 or more systems reviewed and unremarkable except in HPI and below Const: Reports: other (denies trauma); Denies: fever(s), change in weight or night sweats Card: Denies: chest pain, lightheadedness or syncope Resp: Denies: dyspnea GI: Denies: abdominal pain or fecal incontinence : Denies: urinary incontinence Musc: Reports: back pain; Denies: neck pain or extremity pain Skin/Breast: Denies: rash or skin pain Neuro: Reports: numbness in extremities, weakness in extremities, sensory changes and difficulty walking; Denies: headache(s), lack of coordination or frequent falls PFSH ED PFSH: Medical History Hemangioma of vertebral body Lumbar disc disease with radiculopathy Schmorl nodes of lumbar region Compression fracture of vertebral column Social History Smoking and tobacco/nicotine status: former use of tobacco/nicotine Physical Exam Const: COMMON NORMALS: patient oriented x3, no limitations, healthy appearing and alert OTHER: Anxious Resp: COMMON NORMALS: normal respiratory effort, No retractions, No use of accessory muscles and clear to auscultation bilaterally AUSCULTATION: clear to auscultation bilaterally Cardio: COMMON NORMALS: regular rate, regular rhythm, S1 normal heart sound present and S2 normal heart sound present RATE: regular rate RHYTHM: regular rhythm HEART SOUNDS: S1 normal heart sound present and S2 normal heart sound present Back/Pelvis: OTHER: Tender to palpation lower lumbar spine and paralumbar muscles. Does not attempt range of motion secondary to pain. Though when he is lifted from wheelchair to bed he screams in pain. Negative straight leg raise bilaterally. Extremity: COMMON NORMALS: normal to inspection Neuro: COMMON NORMALS: patient oriented x3 SENSORIUM/ORIENTATION: Yes alert MOTOR EXAM: no tremor noted and Normal motor muscle tone present throughout OTHER: Does not attempt to gait. Endorsing complete loss of sensation to bilateral lower extremities below the knee. 0/5 strength bilateral lower extremities. No skin color changes or temperature changes. No clonus. Skin: COMMON NORMALS: no rashes or lesions noted GENERAL SKIN EXAM: no rashes or lesions noted Course Vital Signs: Vital signs: Vital Signs Temperature 98.1 F 12/16/24 10:30 Pulse Rate 60 12/16/24 15:30 Respiratory Rate 17 12/16/24 15:30 Blood Pressure 151/93 12/16/24 15:30 Pulse Oximetry 92 12/16/24 15:30 Oxygen Delivery Me thod Room Air 12/16/24 11:08 MDM - Back Pain/Injury Medical Decision Making This patient presented for acute loss of feeling in his bilateral lower extremities, he was seen by pain management earlier in the day and reportedly was ambulatory. He has chronic history of both lumbar disc disease as well as peripheral neuropathy, family in the room had noted that he has a history of similar in the past where his legs have went numb like this with sensory changes. He had no loss of bowel or bladder function, was able to give a urine here without difficulty. Also had been ambulatory 2 per separate times where he ambulated from the wheelchair to the bed, as well as on the MRI table ambulated from the wheelchair to the bed. Also of note, he has been drawing up his legs and bending his knees, and has endorsed that his sensations have gotten a little better. Primarily was having pain in the low back which again noted to be chronic, has never seen Ortho/spine or had any previous back surgeries, has seen pain management chronically for injections and follow-ups. The MRI finding showed progression of central canal stenosis since June, however there is no acute cauda equina. I spoke to Dr. Oropeza, he had said the patient was acting confused today, head CT ordered showing no acute finding. Also spoke to the patient's family, they state that the patient is at his baseline and that he chronically has memory issues and this is likely what materialized during his visit this morning. Basic labs ordered and unremarkable including normal urinalysis. He had not been running fevers, and again there has been no incontinence of bowel or bladder and noted to be able to move his legs numerous times throughout the ED stay. He will be referred to Ortho/spine for further surgical management, he agrees with discharge home at this time and noted to be ambulatory again to the wheelchair and out of the ED. Spoke to Dr. Case about this patient. Labs 12/16/24 12:14 12/16/24 12:14 Radiology Impressions Lumbar Spine MRI 12/16/24 11:32 IMPRESSION: 1. Progression of central canal stenosis and epidural lipomatosis since 07/21/2024. Most significant changes are from L3-4 to L5-S1. 2. Indistinct appearance and clumping of the nerve roots suggesting arachnoiditis. 3. LEFT foraminal disc protrusion at L5-S1. 4. Marked narrowing of the central canal at L5-S1 due to lipomatosis. 5. Mild central foraminal stenosis at L2-3. 6. Trefoil appearance of the thecal sac at L3-4. Moderate central, subarticular recess and mild foraminal stenosis. Nerve roots are being clumped centrally. 7. Increasing epidural lipomatosis at L4-5 with moderate to severe central and subarticular recess and mild foraminal stenosis. 8. Consider follow-up MRI of the lumbar spine with contrast to better evaluate the nerve roots and to exclude focal nodules. Head CT 12/16/24 11:42 IMPRESSION: 1. No evidence of intracranial hemorrhage or mass effect. 2. No acute intracranial findings. Laboratory Results WBC 6.51 10^3/uL (3.29-11.43) 12/16/24 12:14 RBC 4.92 10^6/uL (3.85-5.65) 12/16/24 12:14 Hgb 13.70 g/dL (11.27-16.99) 12/16/24 12:14 Hct 41.7 % (37-53) 12/16/24 12:14 MCV 84.8 fl (82-101) 12/16/24 12:14 MCH 27.8 pg (27-33) 12/16/24 12:14 MCHC 32.9 g/dL (30-55) 12/16/24 12:14 RDW 13.8 % (12.1-15.1) 12/16/24 12:14 Plt Count 245 10^3/cmm (157-399) 12/16/24 12:14 MPV 9.1 fL (7.4-10.4) 12/16/24 12:14 Neut % (Auto) 43.8 % 12/16/24 12:14 Lymph % (Auto) 39.3 % 12/16/24 12:14 Pine % (Auto) 14.0 % 12/16/24 12:14 Eos % (Auto) 1.7 % 12/16/24 12:14 Baso % (Auto) 0.9 % 12/16/24 12:14 Neut # (Auto) 2.85 10^3/uL (1.8-7.7) 12/16/24 12:14 Lymph # (Auto) 2.6 10^3/uL (0.8-4.8) 12/16/24 12:14 Pine # (Auto) 0.9 10^3/uL (0.2-0.9) 12/16/24 12:14 Eos # (Auto) 0.1 10^3/uL (0.0-0.8) 12/16/24 12:14 Baso # (Auto) 0.1 10^3/uL (0.0-0.1) 12/16/24 12:14 Nucleated RBC % (auto) 0 % 12/16/24 12:14 Nucleated RBCs # 0.0 /100WBC 12/16/24 12:14 Sodium 135 mmol/L (136-145) L 12/16/24 12:14 Potassium 3.7 mmol/L (3.5-5.1) 12/16/24 12:14 Chloride 99 mmol/L (98-107) 12/16/24 12:14 Carbon Dioxide 25 mmol/L (22-29) 12/16/24 12:14 Anion Gap 14.7 (5-19) 12/16/24 12:14 BUN 10 mg/dL (8-23) 12/16/24 12:14 Creatinine 0.7 mg/dL (0.7-1.2) 12/16/24 12:14 GFR Calculation 114.3 mL/min (90-130) 12/16/24 12:14 Glucose 94 mg/dL (65-115) 12/16/24 12:14 Calculated Osmolality 279 mOsm/kg (285-295) L 12/16/24 12:14 Calcium 8.7 mg/dL (8.5-10.5) 12/16/24 12:14 Total Bilirubin 0.3 mg/dL (0.15-1.2) 12/16/24 12:14 AST 16 U/L (0-40) 12/16/24 12:14 ALT 18 U/L (0-41) 12/16/24 12:14 Alkaline Phosphatase 67 U/L (40-130) 12/16/24 12:14 Total Protein 6.4 g/dL (6.6-8.7) L 12/16/24 12:14 Albumin 4.0 g/dL (3.5-5.2) 12/16/24 12:14 Globulin 2.4 g/dL (1.3-4.6) 12/16/24 12:14 Urine Color Yellow (Yellow) 12/16/24 12:33 Urine Appearance Clear (CLEAR) 12/16/24 12:33 Urine pH 6.0 (5-7) 12/16/24 12:33 Ur Specific [place] 1.024 (1.005-1.030) 12/16/24 12:33 Urine Protein Negative (Negative) 12/16/24 12:33 Urine Glucose (UA) Negative (Normal) 12/16/24 12:33 Urine Ketones Trace (Negative) 12/16/24 12:33 Urine Blood Negative (Negative) 12/16/24 12:33 Urine Nitrate Negative (Negative) 12/16/24 12:33 Urine Bilirubin Negative (Negative) 12/16/24 12:33 Urine Urobilinogen 1.0 mg/dL (Negative) 12/16/24 12:33 Ur Leukocyte Esterase Negative (Negative) 12/16/24 12:33 Amorphous Sediment Not Reportable 12/16/24 12:33 All radiology interpretation(s) finalized by discharge Discharge Plan Discharge Patient Disposition: Home Clinical Impression: Lumbar disc disease with radiculopathy, Facet arthropathy, lumbar, Chronic peripheral neuropathic pain Condition: Stable Prescriptions: New lidocaine 5 % adhesive patch,medicated See Rx Instructions .ROUTE .COMPLEX Qty: 15 0RF Rx Instructions: leave on most painful area for up to 12 hrs No Action (DME) STRANGE TLSO brace See Rx Instructions .Route .MEDSUPPLY Qty: 1 0RF Rx Instructions: As directed hydrocodone-acetaminophen 7.5-325 mg tablet 1 tab PO Q4H PRN (Reason: pain) 5 Days Qty: 20 0RF tizanidine 2 mg tablet 2 mg PO BID PRN (Reason: muscle spasticity) Qty: 30 1RF Rx Instructions: may take 2 to 3 times daily. trazodone 50 mg Tablet 50 mg PO BEDTIME acetaminophen 500 mg Tablet 1,000 mg PO TID PRN (Reason: Pain) fluoxetine 20 mg Tablet 60 mg PO QAM divalproex 500 mg Tablet Extended Release 24 Hr 1,500 mg PO BEDTIME gabapentin 300 mg Capsule See Rx Instructions .ROUTE .COMPLEX Rx Instructions: Take 2 capsules by mouth in the morning and 3 capsules in the evening. hydrochlorothiazide 25 mg Tablet 12.5 mg PO DAILY vitamin O88-cuoql acid 0.5-1 mg Tablet 1 tab PO DAILY buspirone 5 mg Tablet 5 mg PO TID omeprazole 40 mg Capsule,Delayed Release(Dr/Ec) 40 mg PO DAILY Humira 40 mg/0.8 mL Syringe Kit 40 mg SUBCUT Q14D isosorbide mononitrate 30 mg tablet extended release 24 hr 30 mg PO DAILY Qty: 30 0RF aspirin 81 mg tablet,delayed release (DR/EC) 81 mg PO DAILY Qty: 30 0RF Discharge Orders: Discharge ED (Routine); Ordered 12/16/24 Ordered By: Yossi Randall Referrals: Monica Guy MD [Primary Care Provider, Internal Medicine] Patient Instructions: Patient Portal & Arlene Instructions Activity Restrictions/Additional Instructions: Please follow-up with Ortho/spine as has been arranged, await a call to set up the appointment. Please continue taking home pain medications as well as your gabapentin. Take lidocaine patches as prescribed. Please return with any loss of function of your bowel or bladder, complete paralysis of the lower extremities, fevers, or any other significant concerns that you have. Print Language: Chadian Coding Level of Care Code ED Supervisor [place] Department for Jen Tello
--- NOTE | 2024-12-16 11:32 | MR_ITS ---
WS: [id number] MRI LUMBAR SPINE NONCONTRAST HISTORY: peripheral numbness, can't walk COMPARISON: 07/21/2024, 06/27/2024 TECHNIQUE: Sagittal and axial multisequence imaging is submitted. Mild increase in thoracic kyphosis. Increase in lumbar lordosis since the prior study. L1 hemangioma. Mild anterior wedging of L3. Posterior lumbar alignment remains normal. Disc spaces and vertebral body heights are well-preserved. Conus terminates normally at L1-2 disc level. Interval change in appearance of the lumbar nerve roots since the prior study. There is clumping of the nerve roots beginning near the L2-3 level. Progression of central canal stenosis with epidural lipomatosis. Epidural lipomatosis is also noted within the midthoracic spine. L1-L2: Normal. L2-L3: Bilateral facet joint arthritis. Mild central canal stenosis and foraminal stenosis. L3-L4: Progressive narrowing of the central canal. Trefoil appearance of the thecal sac. Nerve roots are being displaced centrally. Small amount of fluid in the facet joints. Moderate central and subarticular recess stenosis. Mild foraminal stenosis. There is clumping of the nerve roots in the thecal sac. Nerve roots are very indistinct. L4-L5: Diffuse disc bulging with moderate ligamentum flavum and facet arthritis. Increasing epidural lipomatosis surrounding the thecal sac. Indistinctness of the nerve roots. Moderate to severe central with subarticular recess and mild foraminal stenosis. Progression of stenosis since the prior study. L5-S1: Diffuse disc bulging. LEFT foraminal disc protrusion. Ligamentum flavum and facet arthritis. Marked narrowing of the thecal sac due to lipomatosis. Mild foraminal stenosis. Loss of the normal nerve roots. Suspect arachnoiditis. Paravertebral soft tissues are negative. MR/MR lumbar spine wo con* [id number] IMPRESSION: 1. Progression of central canal stenosis and epidural lipomatosis since 025. Most significant changes are from L3-4 to L5-S1. 2. Indistinct appearance and clumping of the nerve roots suggesting arachnoidi tis. 3. LEFT foraminal disc protrusion at L5-S1. 4. Marked narrowing of the central canal at L5-S1 due to lipomatosis. 5. Mild central foraminal stenosis at L2-3. 6. Trefoil appearance of the thecal sac at L3-4. Moderate central, subarticula r recess and mild foraminal stenosis. Nerve roots are being clumped centrally. 7. Increasing epidural lipomatosis at L4-5 with moderate to severe central and subarticular recess and mild foraminal stenosis. 8. Consider follow-up MRI of the lumbar spine with contrast to better evaluate the nerve roots and to exclude focal nodules.
--- NOTE | 2024-12-16 11:42 | CT_ITS ---
WS: [id number] CT HEAD TECHNIQUE: Noncontrast CT of the head obtained from the skullbase to the vertex. CLINICAL INFORMATION: can't move legs, confusion COMPARISON: 06/23/2024 DLP: 1115.[address] scans at [facility] use at least one of these dose optimization techniques: automated exposure control; mA and/or kV adjustment per patient size (includes targeted exams where dose is matched to clinical indication); or iterative reconstruction. FINDINGS: No evidence of intracranial hemorrhage or mass effect. Ventricular system and basal cisterns are patent. Mild small vessel changes with mild parenchymal volume loss. No extra-axial fluid collections. No evidence of mass or mass effect. Vascular calcification Paranasal sinuses and mastoid air cells are well aerated. .Normal visualized soft tissues. CT/CT head wo con* [id number] IMPRESSION: 1. No evidence of intracranial hemorrhage or mass effect. 2. No acute intracranial findings.
[2024-12-16] MEDS: HYDROmorphone 0.5 MG/0.5 ML INJ 1 MG IVP (11:57)
[2024-12-16] MEDS: orphenadrine 30 mg/mL Inj 2 mL 60 MG IVP (11:57)
[2024-12-16 12:23] LABS: Hematocrit 41.7 % (37-53); Hemoglobin 13.70 g/dL (11.27-16.99); Mean Corpuscular HGB Conc 32.9 g/dL (30-55); Mean Corpuscular Hemoglobin 27.8 pg (27-33); Mean Corpuscular Volume 84.8 fl (82-101); Nucleated Red Blood Cells % 0 %; Platelet Count 245 10^3/cmm (157-399); Red Blood Count 4.92 10^6/uL (3.85-5.65); White Blood Count 6.51 10^3/uL (3.29-11.43)
[2024-12-16 12:40] LABS: Alanine Aminotransferase 18 U/L (0-41); Albumin Level 4.0 g/dL (3.5-5.2); Alkaline Phosphatase 67 U/L (40-130); Anion Gap 14.7 (5-19); Aspartate Amino Transferase 16 U/L (0-40); Blood Urea Nitrogen 10 mg/dL (8-23); Calcium 8.7 mg/dL (8.5-10.5); Carbon Dioxide 25 mmol/L (22-29); Chloride 99 mmol/L (98-107); Creatinine Clr Calc Pharmacy 130.9645; Globulin 2.4 g/dL (1.3-4.6); Glucose 94 mg/dL (65-115); Osmolality Calculated 279 mOsm/kg (285-295); Potassium 3.7 mmol/L (3.5-5.1); Sodium 135 mmol/L (136-145); Total Protein 6.4 g/dL (6.6-8.7)
[2024-12-16 12:43] LABS: Add Urine Microscopic? NO
[2024-12-16 12:45] LABS: Glucose Urine UA Negative (Normal); Nitrate Urine Negative (Negative); Specific Gravity, Urine 1.024 (1.005-1.030)
[2024-12-16 12:57] LABS: Charge for UA Resulting for Rev
[2024-12-16] MEDS: HYDROmorphone 0.5 MG/0.5 ML INJ IVP (15:20)
[2024-12-16 15:30] VITALS: BP 151/93; PULSE 60; RESP 17; O2SAT 92
--- NOTE | 2024-12-16 16:04 | DCPLANNER ---
messaged ortho for er f/u
== END 2024-12-16 15:31 | disposition home or self-care (01) ==
PROVIDERS: Emergency Provider Physician Assistant; PCP Internal Medicine
DX: M51.16 Intervertebral disc disorders with radiculopathy, lumbar region (principal); M12.88 Other specific arthropathies, not elsewhere classified, other specified site; Z87.891 Personal history of nicotine dependence; G62.9 Polyneuropathy, unspecified; G89.29 Other chronic pain; Z79.82 Long term (current) use of aspirin
CPT/HCPCS: 36415; 70450; 72148; 80053; 81003; 85025; 96374; 96375; 96376; 99214; 99285; J1100; J1171; J1885; J2360

== ENCOUNTER → 2025-01-07 15:19 | Outpatient (BNVA) | payer MEDICARE, SELFPAY | PROVIDERS: PCP Internal Medicine; Visit Provider Orthopaedic Surgery | DX: Z01.818 Encounter for other preprocedural examination (principal); M51.16 Intervertebral disc disorders with radiculopathy, lumbar region; M48.062 Spinal stenosis, lumbar region with neurogenic claudication; M47.816 Spondylosis without myelopathy or radiculopathy, lumbar region | CPT/HCPCS: 36415; 72110; 80053; 81001; 85025; 99204 ==

== ENCOUNTER 2025-01-29 11:43 | Day surgery (SDC) | payer MEDICARE, SELFPAY ==
[2025-01-29] VITALS (11 sets, daily range): BP systolic 129–149; BP diastolic 72–104; PULSE 64–88; RESP 15–18; TEMP 36.2–36.6; O2SAT 92–95; BMI 33.7
--- NOTE | 2025-01-29 13:21 | ANES.PREANE2 ---
Pre-Anesthetic Assessment Height/Weight: Height 1.78 m Weight 106.594 kg Temp Pulse Resp BP Pulse Ox O2 Del Method 97.8 F 64 18 129/88 95 Room Air 01/29/25 11:56 01/29/25 11:56 01/29/25 11:56 01/29/25 11:56 01/29/25 11:56 01/29/25 11:56 Operation Date: 01/29/25 14:45 Proposed Procedures p Lumbar Spine Decompression(Not Applicable) - Roque Orellana, DO Familial anesthetic complications: None Was Beta Olga taken within 24 hours: N/A Was Clonidine taken within 24 hours: N/A Last intake: Intake Last Liquid Date 01/29/25 Last Liquid Time 08:00 Last Solid Date 01/28/25 Last Solid Time 22:00 Social No alcohol and No tobacco Exam alert, oriented x 3, clear to auscultation bilaterally and regular rate & rhythm Airway Mallampati: Class II Dentition: other (none) CV/HEM Hypertension GI Gastroesophageal Reflux Disease Anesthetic Plan ASA status: 2 Anesthesia: General Risk of > 500 ml blood loss (7ml/kg in children): No Medications/Allergies Home Medications ?Medication ?Instructions ?Recorded ?Confirmed ?Last Taken ?Type acetaminophen 500 mg tablet 1,000 mg PO TID PRN Pain 01/03/23 01/28/25 Unknown History divalproex 500 mg tablet,extended 1,500 mg PO BEDTIME 01/03/23 01/28/25 01/28/25 History release 24 hr fluoxetine 20 mg tablet 60 mg PO QAM 01/03/23 01/28/25 01/28/25 History gabapentin 300 mg capsule See Rx Instructions .Route .COMPLEX 01/03/23 01/28/25 01/28/25 History hydrochlorothiazide 25 mg tablet 12.5 mg PO DAILY 01/03/23 01/28/25 01/28/25 History trazodone 50 mg tablet 50 mg PO BEDTIME 01/03/23 01/28/25 07/20/24 History vitamin B12 0.5 mg-folic acid 1 mg 1 tab PO DAILY 01/03/23 01/28/25 01/28/25 History tablet STRANGE TLSO brace #1 ea 07/19/24 01/07/25 Unknown Rx tizanidine 2 mg tablet 2 mg PO BID PRN muscle spasticity 07/19/24 01/28/25 07/20/24 Rx #30 tabs adalimumab 40 mg/0.8 mL 40 mg SUBCUT Q14D 07/21/24 01/28/25 2 Weeks Ago History subcutaneous syringe kit (Humira) ~01/14/25 buspirone 5 mg tablet 5 mg PO TID 07/21/24 01/28/25 01/28/25 History omeprazole 40 mg capsule,delayed 40 mg PO DAILY 07/21/24 01/28/25 01/28/25 History release aspirin 81 mg tablet,delayed 81 mg PO DAILY #30 tabs 11/28/24 01/28/25 1 Day Ago Rx release ~01/27/25 isosorbide mononitrate 30 mg 30 mg PO DAILY #30 tabs 11/28/24 01/28/25 01/28/25 Rx tablet,extended release 24 hr lidocaine 5 % topical patch See Rx Instructions topical 12/16/24 01/28/25 Unknown Rx .COMPLEX #15 ea Allergies Allergy/AdvReac Type Severity Reaction Status Date / Time No Known Allergies Allergy Verified 01/28/25 10:06 Current Medications Generic Name Dose Route Start Last Admin Trade Name Freq PRN Reason Stop Dose Admin Sodium Chloride 1,000 mls @ 30 mls/hr 01/29/25 12:00 01/29/25 12:30 Sodium Chloride 0.9% IV 01/30/25 11:59 30 mls/hr .Q24H NADEEM Administration PFSH Anesthesia Medical History (Updated 01/07/25 @ 16:07 by Roque Orellana DO) Hemangioma of vertebral body Lumbar disc disease with radiculopathy Schmorl nodes of lumbar region Compression fracture of vertebral column Social History Smoking and tobacco/nicotine status: former use of tobacco/nicotine Data Anesthesia Cardiac Studies: Sestamibi Stress Test (Cardiology) 12/05/24
--- NOTE | 2025-01-29 14:12 | W.PM.OPSUD ---
Surgery/Procedure H&P Update DATE OF PROCEDURE: January 29, 2025 DATE H&P PERFORMED: 01/07/25 H&P UPDATE INFORMATION: I have reviewed H&P completed within last 30 days, I have examined patient prior to procedure and No changes to prior documentation PREOP DIAGNOSIS: Lumbar stenosis neurogenic claudication PLANNED PROCEDURE: Operation Date: 01/29/25 14:45 Proposed Procedures p Lumbar Spine Decompression(Not Applicable) - Roque Orellana DO
[2025-01-29] MEDS: ceFAZolin 2,000 mg SDV 2000 MG IVP (14:14)
[2025-01-29] MEDS: lidocaine-epi 1% 20 mL INJ INJECTION (14:57)
--- NOTE | 2025-01-29 15:48 | PM.OP ---
Operative Report Date of procedure: January 29, 2025 Pre-op diagnosis: Lumbar stenosis with neurogenic claudication Post-op diagnosis: same Procedure done: 1. L3/4 laminectomy and partial facetectomy 2. L4/5 laminectomy and partial facetectomy Surgeon: Roque Orellana DO Estimated blood loss (mL): 5 Procedure: 1. L3/4 laminectomy and partial facetectomy 2. L4/5 laminectomy and partial facetectomy Patient is brought to the operative suite. After undergoing anesthesia they are placed in the prone position. All areas of impingement are well padded. Patient is then prepped and draped in the normal sterile fashion. A skin incision is made over the L3/4 level. This is confirmed under c-arm guidance. A series of dilators are passed and the tubular retractor is docked on the L3 lamina. A bovie is used to clear the soft tissue off the lamina and the L 3/4 facet joint. A high speed gela is then used to perform the laminectomy and take down the medial aspect of the L 3/4 facet joint. A kerrison rongeure was then used to take down the remaining lamina and smooth the edge of the laminectomy up to the point where the ligamentum flavum attaches. Attention was then brought to the medial aspect of the facet joint. The remaining medial aspect of the superior and inferior aspect of the facet joint were taken down with the kerrison from the pedicle of L3 to L 4. The facet joint had significant hypertrophy. Attention was then brought to the Ligamentum Flavum. The ligament was taken down from the lamina of L3 to L4 and out medially to the remaining facet joint. The ligament was thick. The dura was then exposed. The dura was in good repair. The L3 nerve was then traced with a curette out the L3/4 foramen and found to be adequately decompressed. The L4 nerve was traced with a curette around the L4 pedicle. The lateral recess was opened with a kerrison helping to further decompress the L4 nerve. Wound is then irrigated copiously with saline and surgiflo is used to stop any bleeding. The tubular retractor is removed A skin incision is made over the L4/5 level. This is confirmed under c-arm guidance. A series of dilators are passed and the tubular retractor is docked on the L4 lamina. A bovie is used to clear the soft tissue off the lamina and the L 4/5 facet joint. A high speed gela is then used to perform the laminectomy and take down the medial aspect of the L 4/5 facet joint. A kerrison rongeure was then used to take down the remaining lamina and smooth the edge of the laminectomy up to the point where the ligamentum flavum attaches. Attention was then brought to the medial aspect of the facet joint. The remaining medial aspect of the superior and inferior aspect of the facet joint were taken down with the kerrison from the pedicle of L4 to L 5. The facet joint had significant hypertrophy. Attention was then brought to the Ligamentum Flavum. The ligament was taken down from the lamina of L4 to L5 and out medially to the remaining facet joint. The ligament was thick. The dura was then exposed. The dura was in good repair. The L4 nerve was then traced with a curette out the L4/5 foramen and found to be adequately decompressed. The L5 nerve was traced with a curette around the L5 pedicle. The lateral recess was opened with a kerrison helping to further decompress the L5 nerve. Wound is then irrigated copiously with saline and surgiflo is used to stop any bleeding. The tubular retractor is removed and the wound is closed with vicryl and monocryl suture. Steri strips were applied. A sterile dressing is then placed. Patient was then placed in the supine position and transferred to the PACU in stable condition.
--- NOTE | 2025-01-29 16:14 | XR_ITS ---
WS: [id number] Exam: XR lumbar spine 1V [id number] Date/Time of Exam: 01/29/2025 4:14 PM Reason For Exam: or pic, decompression Limited AP C arm images of the lower lumbar spine are submitted. Images were obtained for preop localization purposes.
[2025-01-29] MEDS: HYDROcodone-acetaminophen 5-325 mg Tablet 2 TAB PO (17:06)
--- NOTE | 2025-01-29 17:25 | ANE.PACU2 ---
Inpatient post-anesthesia follow up: Airway intact: Yes Vital signs: Temperature 97.3 F Pulse Rate 72 Respiratory Rate 17 Blood Pressure 147/88 Pulse Oximetry 95 Oxygen Delivery Me thod Room Air Oxygen Flow Rate 2 Fraction of Inspir ed Oxygen Hydration adequate: Yes Nausea and vomiting: No Pain level: 1 Mental status: Baseline
== END 2025-01-29 17:18 | disposition home or self-care (01) ==
PROVIDERS: PCP Internal Medicine; Visit Provider Orthopaedic Surgery
PROC: (CPT 63005; principal; 2025-01-29 14:45)
DX: M48.062 Spinal stenosis, lumbar region with neurogenic claudication (principal); I10 Essential (primary) hypertension; K21.9 Gastro-esophageal reflux disease without esophagitis; Z79.82 Long term (current) use of aspirin; Z87.891 Personal history of nicotine dependence
CPT/HCPCS: 63047; 63048; 72020; 76000; A4649; J0690; J1100; J2371; J2405; J2704; J3010; J3490; J7030; J9999

== ENCOUNTER → 2025-02-11 14:36 | Outpatient (BNVA) | payer OTHER, SELFPAY | PROVIDERS: PCP Internal Medicine; Visit Provider Orthopaedic Surgery | DX: Z98.890 Other specified postprocedural states (principal) | CPT/HCPCS: 99024 ==